=== PATIENT | male | born 1970 | race Caucasian/White ===

== ENCOUNTER 2024-06-30 00:19 | Inpatient (IN) | payer BC, SELFPAY ==
--- NOTE | 2024-06-29 23:22 | HPS.HSE ---
Family Physician
-
Family Physician: N/A.
Chief Complaint
-
Chest pain.
History of Present Illness
54 y/o male tobacco user without significant documented past medical history presented to with chest pain that began around 8 PM. The patient was washing dishes when he developed substernal chest pain. He initially thought this was indigestion.
He became weak and diaphoretic. After his symptoms did not antony, he called EMS. EKG demonstrated inferior STEMI. Pre-hospital STEMI alert was called. During transport, the patient suffered VT/VF arrest. ACLS was initiated. The patient
received high quality CPR and he was defibrillated. CPR was ongoing when the patient arrived in the ER, but ROSC was achieved. Dr. Castillo was preparing to intubate and secure the airway when the patient began making purposeful movements. He
was placed on a non-rebreather and his mentation continued to improve. At the time of my interview, he is speaking coherently. His chest pain has significantly improved. EKG in ER continues to show inferior/inferolateral STEMI.
Medical History
Past Medical History
Past Medical History: Reports None
Past Surgical History: Reports None
Social History
Tobacco: Smoker
Alcohol: Occasional
Drug: None
Personal:
Living: With Family
Employment: Employed (Works at [employer])
Family History
Family History: CAD (CAD in his father, unclear if premature.)
Allergies / Home Medications
Allergies reflects when Allergies were last updated in [facility] [facility].
Home Medications with original date entered in [facility] [facility] [facility]
Allergy/Medication List:
Home Medications:
No home medications.
Allergies:
NKDA.
Review of Systems
-
History Source: Patient
Constitutional: Reports No Symptoms
EENT: Reports No Symptoms
Respiratory: Reports Trouble Breathing
Cardiac: Reports Chest Pain and Diaphoresis
Abdomen/GI: Reports Nausea
: Reports No Symptoms
Musculoskeletal: Reports No Symptoms
Neurological: Reports No Symptoms
Physical Exam
Physical Exam
General: Well Developed, Well Nourished and Conversant
HEENT: NormoCephalic, Anicteric, Moist mucous membranes, Atraumatic, PERRLA, No Ptosis, Nose Appears Normal and Ears Appear Normal
Respiratory: Clear and Non Labored Respirations
Cardiac: S1/S2 and Regular Rhythm
Breast: Deferred by me
GI: Soft, Non Tender, Non Distended and Normal Bowel Sounds
Rectal: Deferred by Provider
Genito-urinary: Deferred by me
Musculoskeletal: No Clubbing, No Cyanosis and No Edema
Skin: Warm and Dry
Neuro: AO x 3 and Nonfocal/grossly intact
Hematologic/Lymphatic: No Lymphadenopathy
Psych: Calm and Intact Judgment/Insight
Data Reviewed
-
Medical Tests (Nuc Med, Echo, EKG etc): Image Personally Visualized and interpreted, Report Reviewed by me, Discussed with Physician, Discussed with Patient and Discussed with Family
Impression/Plan
-
Impression/Plan: 54 y/o male tobacco user presenting with STEMI complicated by VT/VF arrest.
#STEMI
-Acute, life threatening diagnosis.
-Heparin/aspirin/ticagrelor administered.
-Plan for emergent cardiac catheterization/ad hoc PCI.
-Consent signed and on the chart.
-Further instructions to follow.
[2024-06-29 23:42] VITALS: BP 131/93; BMI 32.7
[2024-06-29 23:56] LABS: ACT-LR - POC 237 Seconds (116-155)
[2024-06-30] VITALS (20 sets, daily range): BP systolic 86–132; BP diastolic 50–79; BMI 32.0
[2024-06-30 00:14] LABS: % Basophils 0.3 % (0-2); % Eosinophils 0.4 % (0-6); % Immature Granulocytes 0.5 % (0-0.5); % Monocytes 5.8 % (1.7-9.3); Absolute Eosinophils 0.1 10^3/uL (0-0.7); Absolute Immature Granulocytes 0.1 10^3/uL (0-0.05); Absolute Lymphocytes 1.5 10^3/uL (1.2-3.4); Absolute Monocytes 0.7 10^3/uL (0.1-0.6); Absolute Neutrophils 9.3 10^3/uL (1.4-6.5); Hemoglobin 12.9 g/dL (13.0-18.0); Mean Corp Hgb Conc. 33.1 g/dL (33.0-37.0); Mean Corpuscular Hgb 29.4 pg (27.0-31.0); Mean Corpuscular Volume 88.8 fL (80.0-94.0); Mean Platelet Volume 10.5 fL (7.4-10.4); Nucleated Red Blood Cells % 0 % (-); Platelet Count 249 10^3/uL (130-400); Red Blood Cell Count 4.39 10^6/uL (4.70-6.10); White Blood Cell Count 11.7 10^3/uL (4.8-10.8)
[2024-06-30 00:14] LABS: ACT-LR - POC 287 Seconds (116-155)
--- NOTE | 2024-06-30 00:22 | ITS.CL.ANGIO ---
Staffing Recruiter - Angioplasty
Angioplasty
Procedure Report:
CARDIAC CATHETERIZATION REPORT
Date of Procedure: 06/29/2024 into 06/30/2024
Referring: Carmita Faith D.O.
INDICATION: ST elevation myocardial infarction, VT/VF arrest.
PROCEDURE:
1. Left heart catheterization
2. Coronary angiography.
3. Successful aspiration thrombectomy of the right coronary artery.
4. Successful PCI of the proximal and mid right coronary artery.
A total of 38 minutes of procedural/moderate sedation was utilized. An independent director global medical affairs was present to assist with and help manage the patient's level of consciousness and physiologic status.
ACCESS:
1. 6 Thai right radial artery using a modified Seldinger technique.
CATHETERS:
1. 5 Thai JR4.
2. 5 Thai JL 3.5.
3. 6 Thai JR4 guiding catheter.
HEMODYNAMIC DATA
Weight (kg): 109.4
AO (s/d/x, mmHg): 118/83/100
LV (s/x mmHg): 118/18
LEFT VENTRICULOGRAPHY: Not performed.
CORONARY ANGIOGRAPHY
Dominance: Right.
Left Main: Cavernous, trifurcating vessel. There is no significant coronary artery disease.
LAD: Large size vessel giving rise to several small diagonals before wrapping around the apex. There is no coronary artery disease.
Ramus: Medium size vessel supplying the majority of the anterolateral wall. There is no coronary artery disease.
Circumflex: Large size, nondominant vessel giving rise to 1 significant obtuse marginal that supplies the inferolateral wall. There is a 50-60% lesion in the proximal circumflex, immediately proximal to the origin of the marginal.
RCA: Large size, dominant vessel. There is a 70% lesion in the proximal vessel. The mid vessel is acutely occluded with a large thrombus burden.
INTERVENTION(S)
1. Successful aspiration thrombectomy of the right coronary artery, restoring MELVIN-3 flow.
2. Successful PCI of the proximal and mid RCA lesions (overlapping Xience Skypoint 3.5 x 38 and 3.5 x 18 RAJI, postdilated with a 4.0 NC balloon throughout) with reduction in stenosis to 0%, maintaining MELVIN-3 flow.
Narrative:
The decision was made to proceed with percutaneous coronary intervention. The diagnostic catheter was removed over a wire and a 6Fr JR4 guiding catheter was advanced to the aortic root and seated in the right coronary artery. Additional heparin was
given and a Power Turn Flex wire was advanced into the distal RCA.
The decision was made to perform aspiration thrombectomy. An NIC catheter was prepped and flushed on the back table then connected to a syringe which was pulled to negative. The catheter was advanced into the right coronary artery. The stopcock
was opened to the vacuum syringe and the catheter was passed through the thrombotic segment. The catheter was withdrawn from the guiding catheter, maintaining negative pressure. The contents were emptied into the filter basket. Angiography showed
jain of MELVIN-3 flow throughout the entire vessel with a hazy, culprit mid RCA lesion. The filter basket revealed a significant amount of aspirated thrombus.
The hazy, thrombotic, mid RCA lesion was predilated with a 2.0 x 12 semi-compliant balloon to 12 zak. The 70% proximal RCA lesion was also predilated to 12 zak. The semi-compliant balloon was removed and a Xience Skypoint 3.5 x 38 drug-eluting
stent was advanced into the mid RCA. The stent was deployed at 12 atmospheres. The stent balloon was removed. A second, 3.5 x 18 drug-eluting stent was advanced. Meticulous care was taken while positioning the stent, ensuring that the distal
margin of this second stent overlapped with the proximal margin of the first stent and that the proximal margin of this stent covered the entire diseased segment of the proximal RCA. We were satisfied with the position, the stent was deployed to 12
zak. The stent balloon was withdrawn. A 4.0 x 20 noncompliant balloon was advanced into the stents and the entire stent length was postdilated to 14 atmospheres. Angiography was performed in orthogonal views, confirming good stent expansion and an
excellent angiographic result. The coronary wire was withdrawn and the guide was disengaged from the artery. The catheter was removed over a standard J-wire.
Closure Device: Vascular band.
Radiation (mGy): 534.24
DAP (cm2.Gy): 30.8068
Fluoroscopy time (minutes): 7.3
CONCLUSIONS
1. Right dominant circulation with a 50 to 60% proximal circumflex lesion, a 70% lesion in the proximal RCA followed by an acute occlusion of the mid RCA status post successful aspiration thrombectomy with jain of MELVIN-3 flow followed by
successful PCI of the mid RCA and proximal RCA lesions (overlapping Xience Skypoint 3.5 x 38 and 3.5 x 18 RAJI, postdilated with a 4.0 NC balloon throughout) with reduction in stenosis to 0%.
2. Mildly elevated filling pressures (LVEDP = 18 mmHg at 109.4 kg).
RECOMMENDATIONS:
1. Expectant management after cardiac catheterization via right radial approach.
2. Limited weight bearing on the right for one week.
3. Dual antiplatelet therapy with aspirin and ticagrelor for at least 12 months, followed by aspirin indefinitely.
4. Continue eptifibatide for 18 hours.
5. Aggressive secondary prevention with high-dose, high potency statin. Start rosuvastatin 20 mg daily. Goal LDL <55.
6. Guideline directed medical therapy as hemodynamics will tolerate.
7. Echocardiogram ordered and pending.
8. Trend troponin to peak.
9. Referral to cardiac rehab.
Copy to: To Mari D.O.
To Mari, DO, FACC, FACP
[2024-06-30 00:24] LABS: ALT (SGPT) 26 U/L (0-50); AST (SGOT) 32 U/L (17-59); Albumin 4.1 g/dl (3.5-5.0); Alkaline Phosphatase 82 U/L (38-126); Blood Urea Nitrogen 14 mg/dl (9-20); Calcium 8.7 mg/dl (8.4-10.2); Carbon Dioxide 22 mmol/L (22-30); Chloride 101 mmol/L (98-107); Estimated Creatinine Clearance > 125 ml/min; Glucose 233 mg/dl (70-99); HDL Cholesterol 40 mg/dl; LDL Cholesterol, Calculated 151 mg/dl; Potassium 3.4 mmol/L (3.5-5.1); Sodium 134 mmol/L (135-145); Total Bilirubin 0.4 mg/dl (0.2-1.3); Total Cholesterol 207 mg/dl (50-199); Total Protein 6.7 g/dl (6.3-8.2); Triglyceride 84 mg/dl (10-149); Very Low Density Lipoprotein 16 mg/dl (0-30); eGFR > 60.00
[2024-06-30 00:37] LABS: Troponin I 0.127 ng/ml
--- NOTE | 2024-06-30 01:12 | PTCARENOTE ---
pt received from custodial laborer, pt AOx3, tele reading NSR. No pain at this time. EKG post cath completed. Integrillin gtt running at 17mL/hr and to be run for 18hrs. air to be removed from TR band starting at 2:30am. POC discussed with patient. pt and
family verbalizes understanding. call fonseca within reach. continuing to monitor at this time.
--- NOTE | 2024-06-30 01:44 | ED.GENMED ---
History of Present Illness
General
Chief Complaint: Cardiac Symptoms
Source: patient and ambulance crew
Exam Limitations: clinical condition and altered mental status
Time Seen by Provider: 06/29/24 23:00
Nursing documentation reviewed up to this point in time: agreed with
History of Present Illness
History of Present Illness:
This is a 54-year-old gentleman who has reported no significant past medical history but admittedly has been to a doctor in at least the past 5 years. Takes no medicines on a daily basis.
Tongerard has been complaining of chest pain radiating to his arms with bilateral arm numbness. called 911 and upon EMS arrival prehospital EKG shows ST segment elevation inferiorly with reciprocal depression high lateral consistent with STEMI,
acute inferior wall VT.
Prehospital STEMI alert initiated.
Patient was given 325 mg chewable aspirin en route to the hospital.
EMS reviewed port that just prior to arrival to the ED patient rhythm changed to V. tach without a pulse and patient became unresponsive. They had difficulty with IV access/no IV access prehospital.
[id number] and CPR initiated promptly and he was given 1 shock, initially without change in rhythm but upon arrival to the ED, patient noted to have some spontaneous movement, spontaneous respirations and found to have thready but palpable
carotid pulse.
medical typist shows sinus rhythm with frequent PVCs and few short runs of V. tach.
Patient's sensorium promptly improved, he is now awake, answering simple questions appropriately. Initially quite jon with peripheral cyanosis. Nonrebreather mask initiated with marked improvement in overall coloring and sensorium.
Cardiac rhythm has improved to normal sinus rhythm with palpable peripheral pulses.
Patient continues with substernal chest pain but markedly improved.
He takes no medicines on a daily basis and denies allergies.
No prior history of CAD
Past History
Past History
ED Past Medical History: Other (Cardiomegaly. emphysema); Negative HTN, Hypercholesterolemia or NIDDM
ED Past Surgical History: None
Social History
Tobacco: Smoker
Alcohol: Former
Personal:
Living: with family
Employment: Not employed
Family History
Family History: Unable to obtain
Phy Exam
Physical Exam
Physical Exam:
GENERAL: 54-year-old obese gentleman appears older than stated age, initially obtunded, CPR progress but shortly after arrival patient's sensorium has improved, palpable pulses detected and he is now able to answer yes/no questions appropriately,
follow simple commands.
EYE: pupils equal and reactive. anicteric
NECK: Supple, nontender, no meningismus, no significant adenopathy.
ENT: oral mucosa is moist. No rhinorrhea.
CARDIAC: Initially irregularly irregular at a rate of 60-80, no murmur.
LUNGS: Poor inspiratory effort initially, has improved to normal respirations. Lungs are clear to auscultation.
ABDOMEN: Rotund, soft, nondistended, without focal tenderness
NEUROLOGICAL: Initially obtunded, sensorium has improved shortly after arrival, is now awake, alert, oriented x 3. No focal neuro deficits.
SKIN: Initially cool, markedly ashen with peripheral mottling and cyanosis. Cyanosis and mottling promptly resolved with restorationist of normal respirations and initiation of 100% oxygen via nonrebreather mask.
MUSCULOSKELETAL: No C/C/E. peripheral pulses are full and equal b/l. No palpable tenderness.
PSYCH: Normal and appropriate interaction.
Course
Orders/Labs/Results
Orders:
Orders
06/29/24 23:03
Amiodarone [Cordarone] 300 mg .ROUTE .STK-MED ONE
06/29/24 23:05
Electrocardiogram (*1) Urgent
Reason for Study: Chest Pain
EKG- Treatment ONCE
06/29/24 23:08
Ticagrelor [Brilinta] 90 mg .ROUTE .STK-MED ONE
06/29/24 23:09
Nitroglycerin 100 mg/250 ml [Nitroglycerin Premix] 100 mg in 250 ml .ROUTE .STK-MED
06/30/24 00:01
Cardiovascular Evaluation Urgent
Complete Blood Count/With Diff Urgent
Comprehensive Metabolic Panel Urgent
Troponin I Urgent
06/30/24 00:19
Admit Patient As Directed
Co-Sign Provider:
Level of Care: Inpatient admission
Assign to:: IVU
Physician / Group: Kamaljit/MIKE
Diagnosis: STEMI, VT/VF arrest.
Patient Condition: Fair
Reason for Hospitalization: STEMI, VT/VF arrest.
Expected length of stay greater than two midnights?: Yes
ELOS- Estimated Length of Stay in days: 3
I certify the patient meets the requirements for IP care: Yes
Reason for Overnight Stay: Standard of Care
Electrocardiogram (*1) Urgent
Reason for Study: Other
Other Reason for Exam: s/p intervention
Code Status As Directed
Resuscitation Status: Full Code
CARDIAC REHAB CONSULT Routine
Co-Sign Provider:
Type of Cardiac Rehab Referral: Outpatient
Diagnosis: STEMI
Date of Diagnosis/Surgery: 06/29/2024
Referring Provider: To Mari
Acetaminophen [Tylenol] 650 mg PO Q4HPRN PRN
Fentanyl Citrate/Pf [Sublimaze] 25 mcg IV [id number] PRN
Midazolam HCl [Versed] 1 mg IV Q5MPRN PRN
Morphine Sulfate 2 mg IV Q1HPRN PRN
Nitroglycerin Sublingual [Nitrostat (Sublingual)] 0.4 mg SL [id number] PRN
Oxycodone/Acetaminophen [Percocet 5/325] 1 tablet PO Q4HPRN PRN
Activity As Directed
Activity Level: Out of Bed- Chair
Comment: bed/chair rest for 2 hours then out of bed ad chastity
Investment Specialist Procedure As Directed
Cardiac Cath Procedure: percutaneous coronary intervention
Intake/ Output As Directed
Frequency: Per unit guidelines
Notify MD As Directed
Notify physician if: immediately for chest pain or bleeding from access site(s)
Radial Artery Hemostasis Method As Directed
Instructions:: 3 mL out at 2 hour posts placement of band
3 mL out at 2 1/2 hours post placement of band
3 mL out at 3 hours post placement of band
Off at 3 1/2 hours post placement of band
If any oozing or hemotoma occurs:: re-inflate band and call provider
Site Checks As Directed
Check access site for bleeding/hematoma: Yes
Comment: on arrival, Q15min x4, Q30min x2, Q1 hr x2, Q2 hr x2, Q4 hr or per
protocol
Vascular Checks As Directed
Location: distal to access site - pulse check
Frequency: Other
Comment: on arrival, Q15min x4, Q30min x2, Q1 hr x2, Q2 hr x2, Q4 hr or per protocol
Venous Foot Pumps As Directed
Location: Bilateral feet
Vital Signs As Directed
Frequency: Other
Additional Instructions:: on arrival, Q15min x4, Q30min x2, Q1 hr x2, Q2 hr x2, then Q4 hr or per unit
protocol
PRN Pain Medication Management As Directed
May give lesser potent ordered pain med per pt: Yes
preference::
Protocol:: Medication orders for pain may be administered in a
manner that supports deferring to patient preference
when the pt is:
- Requesting an ordered lesser potent pain medication.
Least to most potent pain medications are defined
as: acetaminophen < NSAID < tramadol < opioids
(morphine, oxycodone, hydromorphone).
- Requesting a lesser dose of the same medication IF
ORDERED.
- Requesting a less intrusive route of administration
if both routes are prescribed by the provider (PO <
IV).
DX Deep Vein Thrombosis Video Routine
06/30/24 00:30
0.9% Sodium Chloride 1000 ml [Nss] 1,000 ml IV PER PROTOCOL
Infusion rate in mL/kg/hr:: 1.5
Infusion rate in mL/hr:: 164
Duration of infusion (hours):: 5
EPTIFIBATIDE 75 mg/100 mL [Integrilin] 75,000 mcg in 100 ml IV ORDERED RATE
06/30/24 00:54
Case Management Consult ONCE
Case Management Consult: Advanced Directive
06/30/24 01:00
Flush (0.9% Sodium Chloride) [Flush (Nss)] See Dose Instructions IV PER PROTOCOL
06/30/24 04:50
Basic Metabolic Panel IN AM
Complete Blood Count/No Diff IN AM
Glycohemoglobin (HgbA1c) Routine
Troponin I Q6H
06/30/24 06:00
Echo 2D MMode Color/Doppler IN AM
Reason for Study: STEMI, VT/VF arrest.
Electrocardiogram (*1) IN AM
Reason for Study: Other
Other Reason for Exam: s/p intervention
Cholesterol Lowering
At Your Request: Full Participation
Does patient need a safe tray?: No
Cholesterol Lowering: Sodium, 2 Gram
06/30/24 08:00
Aspirin Chewable [Low Strength Aspirin] 81 mg PO DAILY
Ticagrelor [Brilinta] 90 mg PO BID
06/30/24 12:30
Troponin I Q6H
06/30/24 18:00
Enoxaparin Sodium [Lovenox] 40 mg SC QPM
Rosuvastatin Calcium [Crestor] 20 mg PO QPM
06/30/24 18:30
Troponin I Q6H
07/01/24 00:30
Troponin I Q6H
07/01/24 06:00
Basic Metabolic Panel IN AM
07/02/24 06:00
Basic Metabolic Panel IN AM
Abnormal Lab Results
06/29/24 06/30/24 06/30/24
23:50 00:01 00:08
WBC 11.7 H 10^3/uL
(4.8-10.8)
RBC 4.39 L 10^6/uL
(4.70-6.10)
Hgb 12.9 L g/dL
(13.0-18.0)
Hct
MPV 10.5 H fL
(7.4-10.4)
Abs Immat Gran (auto) 0.1 H 10^3/uL
(0-0.05)
Absolute Neuts (auto) 9.3 H 10^3/uL
(1.4-6.5)
Absolute Monos (auto) 0.7 H 10^3/uL
(0.1-0.6)
Neutrophils % 80.0 H %
(42.2-75.2)
Lymphocytes % 13.0 L %
(20.5-51.1)
Sodium 134 L mmol/L
(135-145)
Potassium 3.4 L mmol/L
(3.5-5.1)
Creatinine
Glucose 233 H mg/dl
(70-99)
Troponin I 0.127 H* ng/ml
Total Cholesterol 207 H mg/dl
(50-199)
POC ACT Low Range 237 H Seconds 287 H Seconds
(116-155) (116-155)
06/30/24
04:50
WBC 12.5 H 10^3/uL
(4.8-10.8)
RBC 4.27 L 10^6/uL
(4.70-6.10)
Hgb 12.6 L g/dL
(13.0-18.0)
Hct 37.6 L %
(39.0-52.0)
MPV
Abs Immat Gran (auto)
Absolute Neuts (auto)
Absolute Monos (auto)
Neutrophils %
Lymphocytes %
Sodium 133 L mmol/L
(135-145)
Potassium
Creatinine 0.6 L mg/dL
(0.7-1.3)
Glucose 102 H mg/dl
(70-99)
Troponin I 37.300 H* D ng/ml
Total Cholesterol
POC ACT Low Range
06/30/24 04:50
06/30/24 04:50
Vital Signs
Initial and Last Documented VS:
Initial Vital Signs
Pulse Resp BP Pulse Ox
77 20 131/93 92
06/29/24 23:42 06/29/24 23:42 06/29/24 23:42 06/29/24 23:42
Last Documented Vital Signs
Temp Pulse Resp BP Pulse Ox
97.8 F 77 16 115/77 95
06/30/24 03:05 06/30/24 03:05 06/30/24 03:05 06/30/24 03:05 06/30/24 03:05
MDM/Problems Addressed
Differential Diagnosis Includes:
Acute STEMI, prehospital STEMI alert notified.
Brief episode of V. tach requiring CPR, 1 shock with ROSC
Initial obtundation has resolved with restorationist of cardiac rhythm and spontaneous respirations.
Initial plan was for oral intubation but sensorium and respiratory status as well as cardiovascular status has markedly improved since arrival to the ED.
Patient was given 324 mg chewable aspirin prehospital.
Will give Brilinta 180 mg orally to chew.
Heparin 5000 units IV
And due to V. tach arrest will give amiodarone 150 mg IV bolus.
Patient noted to be moderately hypertensive and does continue with some chest pain.
If time allows we will plan for IV nitroglycerin drip.
Awaiting Investment Specialist and tool room attendant.
MDM/Problems Addressed:
Acute inferior wall VT/STEMI
V. tach arrest with ROSC
*Pulse Oximetry
Patient hypoxic: no
*EKG
Interpreted by ED Provider?: Yes
Interpretation: abnormal
Rate: normal
Rhythm: sinus
[place]: normal axis
Interval: first degree heart block (Borderline first-degree heart block)
QRS Pattern: normal QRS
Ischemia: ST elevation (ST segment elevation inferiorly with reciprocal depression high laterally consistent with STEMI)
*Glaze Wiper Interpretation
Rate: normal
Interpretation: abnormal
Rhythm: sinus and PVC's (Few short runs of V. tach initially have resolved to normal sinus rhythm)
*Critical Care Note
Total Time (30-74mins, 75-104mins- exclusive of procedures): 30
comment:
Critical care statement: A total of 30 minutes of critical care time was provided for this patient. This includes management of unstable vital signs, evaluation of the patient at bedside, reviewing the patient's pertinent medical records, discussion
with consultants, review of old EKGs and review of pertinent medical records. This time with separate from time utilized to perform the aforementioned documented procedures
ED Attending Note
-
Portions of this chart may have been created with voice recognition software.� Occasional wrong word or��sound alike� substitutions may have occurred due to the inherent limitations of voice recognition software.
Discharge Plan
Departure
Patient Disposition: Admit
Date of Disposition: 06/29/24
Time of Disposition: 23:30
Admit to: research laboratory technician
Admit to doctor: Kamaljit
Presentation/result/management discussed w/ accepting MD/DO: Cardiology-interventional
Condition: Critical
Discharge Problem:
ST elevation (STEMI) myocardial infarction, ventricular tachycardia cardiac arrest
Interventions
Interventions:
*Nursing Disposition Last Done: 06/29/24 23:51
ED- Pulmonary Assessment Last Done: 06/29/24 23:48
ED- Cardiac Assessment Last Done: 06/29/24 23:48
Discharge Date and Time
Discharge Date/Time: 06/29/24 23:52
[2024-06-30] MEDS: INTEGRILIN 100 IV ×3 (03:46→16:42)
[2024-06-30 05:26] LABS: Hematocrit 37.6 % (39.0-52.0); Hemoglobin 12.6 g/dL (13.0-18.0); Mean Corp Hgb Conc. 33.5 g/dL (33.0-37.0); Mean Corpuscular Hgb 29.5 pg (27.0-31.0); Mean Corpuscular Volume 88.1 fL (80.0-94.0); Mean Platelet Volume 10.4 fL (7.4-10.4); Platelet Count 231 10^3/uL (130-400); Red Blood Cell Count 4.27 10^6/uL (4.70-6.10); Red Cell Dist. Width 13.1 % (11.5-14.5); White Blood Cell Count 12.5 10^3/uL (4.8-10.8)
[2024-06-30 05:39] LABS: Blood Urea Nitrogen 15 mg/dl (9-20); Calcium 9.1 mg/dl (8.4-10.2); Carbon Dioxide 24 mmol/L (22-30); Chloride 103 mmol/L (98-107); Estimated Creatinine Clearance > 125 ml/min; Glucose 102 mg/dl (70-99); Potassium 4.3 mmol/L (3.5-5.1); Sodium 133 mmol/L (135-145); eGFR > 60.00
--- NOTE | 2024-06-30 08:06 | W.PN.CD ---
Today's Communication / Plan
-
DAPT.
Metoprolol 12.5 mg daily.
Statin.
Echo.
Tentative plan for recath/iFR of pLCx tomorrow.
Impression / Plan
-
Impression/Plan: 54 y/o male tobacco user admitted with STEMI complicated by VT/VF arrest.
#STEMI
-Acute, life threatening diagnosis.
-S/P cardiac catheterization, followed by aspiration thrombectomy/PCI of the mid and proximal RCA ( ), 06/29-.
-Troponin up to 37, not yet peaked.
-DAPT with aspirin/ticagrelor for 12 months, followed by aspirin indefinitely.
-Echocardiogram pending.
-Start metoprolol 12.5 mg daily.
-Aggressive secondary prevention with high dose, high potency statin.
#Residual CAD
-New diagnosis.
-Residual 50-60% pLCx lesion seen on cath/PCI for STEMI.
-Statin as above.
-Tentative plan for re-cath/iFR of the pLCx lesion tomorrow.
#HLD
-New diagnosis.
-Total cholesterol = 207, LDL = 151, HDL = 40, Triglycerides = 84.
-Rosuvastatin 20 mg daily.
-Goal LDL < 55.
#Tobacco abuse
-Chronic.
-I congratulated him on quitting as of this hospitalization.
Subjective/Interval History:
Patient presented with inferior STEMI complicated by VT/VF arrest.
ROSC achieved with ACLS/defibrillation.
Normal mentation.
Cardiac cath showed proximal/mid RCA occlusion and residual LCx disease (50-60%).
S/P PCI to proximal/mid RCA.
DATA:
Cardiac Catheterization/PCI, 06/29/2024:
CONCLUSIONS
1. Right dominant circulation with a 50 to 60% proximal circumflex lesion, a 70% lesion in the proximal RCA followed by an acute occlusion of the mid RCA status post successful aspiration thrombectomy with christian of MELVIN-3 flow followed by
successful PCI of the mid RCA and proximal RCA lesions (overlapping Xience Skypoint 3.5 x 38 and 3.5 x 18 RAJI, postdilated with a 4.0 NC balloon throughout) with reduction in stenosis to 0%.
2. Mildly elevated filling pressures (LVEDP = 18 mmHg at 109.4 kg).
Physical Exam
Vital Signs/Labs
Vital Signs
Temp Pulse Resp BP Pulse Ox
36.6 C 77 16 115/77 95
06/30/24 03:05 06/30/24 03:05 06/30/24 03:05 06/30/24 03:05 06/30/24 03:05
06/28/24 06/29/24 06/30/24
11:59 11:59 11:59
Actual Weight 109.9 kg
06/30/24 04:50
06/30/24 04:50
Triglycerides 84 mg/dl (10-149) 06/30/24 00:01
LDL Cholesterol, Calc 151 mg/dl 06/30/24 00:01
VLDL Cholesterol, Calc 16 mg/dl (0-30) 06/30/24 00:01
HDL Cholesterol 40 mg/dl 06/30/24 00:01
LAB Results
06/30/24 06/30/24 06/30/24
00:01 00:30 04:50
Troponin I 0.127 H* Cancelled 37.300 H* D
Physical Exam
Constitutional: No acute distress and Comfortable
EENT: Anicteric and Moist mucous membranes
Cardiovascular: Rhythm & rate is regular, Pedal edema is absent, JVD pressure is normal, S1S2 is normal and Murmur/rub/gallop absent
Respiratory: Respiratory effort normal, Lungs clear to auscul., Wheeze Absent, Crackles Absent and Rhonchi Absent
GI: Soft, Distention absent, Flat, Non tender and Normal bowel sounds
Neuro/Psych: AO x 3
Other: Cath Site (Right radial access site is C/D/I.)
Data Reviewed
-
Date of Service: June 30, 2024
Medical Decision Making: Reviewed Test Results, Independent Historian Assessment and Test Interpretation
EKG: Tracing Personally Visualized and interpreted and Report Reviewed by me
Echo: Ordered by me
Medical Tests (PFT, Pathology etc): Image Personally Visualized and interpreted, Report Reviewed by me, Discussed with Nurse, Discussed with Patient and Discussed with Family
Labs: Labs Reviewed by me
Old Records: Reviewed
[2024-06-30] MEDS: BRILINTA 90 MG PO (08:52)
[2024-06-30] MEDS: LOW STRENGTH ASPIRIN 81 MG PO (08:52)
[2024-06-30] MEDS: TOPROL XL 12.5 MG PO ×2 (10:14→16:37)
[2024-06-30] MEDS: NICODERM TRANSDERMAL 21 MG TRANSDERM (10:14)
--- NOTE | 2024-06-30 11:11 | PTCARENOTE ---
Received pt at handoff. Pt is AOX3 and pleasant. Tele- SR. R radial is c/d/i. No hematoma/bleeding noted. Integrillin gtt infusing at 17ml/hr per order. Pt has no complaints at this time. Nicotine patch applied to R upper arm. Plan of care discussed
w/ pt. Verbalizes understanding. Call marian w/in reach.
--- NOTE | 2024-06-30 12:55 | CM ---
CM following for DC planning needs.
Met w/ patient and additional family members at bedside.
Pt. resides w/ family in a private, mobile home w/ 4 SHARIF. Functionally, patient is indep. at baseline w/ ADLs, mobility without the use of any assisted device.
Pt. has RX plan and uses [facility] on [address] for RX needs.
Anticipate DC to home without needs.
Will follow for any needs that may arise.
--- NOTE | 2024-06-30 13:32 | CM ---
Priced Brilinta thru patient's pharm plan, [facility]- [phone].
Brilinta is non-formulary.
Effient or Plavix would be covered and estimated to be $10/mo.
TT to JOSE L to update.
--- NOTE | 2024-06-30 16:09 | PTCARENOTE ---
Pt w/ 10 beat run Vtach. BP 132/78. Pt reports a 'fluttery feeling' in chest. Kamaljit REDDY made aware.
--- NOTE | 2024-06-30 16:35 | PTCARENOTE ---
Pt w/ 10 beat run Vtach. BP 132/78. Pt reports a 'fluttery feeling' in chest. Megan REDDY made aware and orders placed for stat PO 12.5mg metoprolol.
[2024-06-30] MEDS: CRESTOR 20 MG PO (18:19)
--- NOTE | 2024-06-30 18:29 | PTCARENOTE ---
Integrillin gtt discontinued per order.
--- NOTE | 2024-06-30 20:41 | PTCARENOTE ---
assumed care at change of shift. pt seen and assessed in room, pt family in room as well. pt OOB to chair, sitting comfortably in chair. no complaints of pain at this time. R radial site c/d/i with gauze and tegaderm. This RN discussed POC to pt,
including NPO past midnight for planned cath 07/01. Pt. verbalizes understanding. Call fonseca within reach. Continuing to monitor at this time.
[2024-07-01 04:31] VITALS: BP 126/75
[2024-07-01 05:14] VITALS: BMI 31.9
[2024-07-01 05:43] LABS: Blood Urea Nitrogen 14 mg/dl (9-20); Calcium 8.8 mg/dl (8.4-10.2); Carbon Dioxide 27 mmol/L (22-30); Chloride 103 mmol/L (98-107); Estimated Creatinine Clearance > 125 ml/min; Glucose 120 mg/dl (70-99); Potassium 4.2 mmol/L (3.5-5.1); Sodium 137 mmol/L (135-145); eGFR > 60.00
--- NOTE | 2024-07-01 07:23 | W.PN.CD ---
Today's Communication / Plan
-
Prasugrel load.
Continue GDMT/OMT.
Deferred iFR of LCx as an outpatient.
Discharge planning.
Impression / Plan
-
Impression/Plan: 54 y/o male tobacco user admitted with STEMI complicated by VT/VF arrest.
#STEMI
-Acute, life threatening diagnosis.
-S/P cardiac catheterization, followed by aspiration thrombectomy/PCI of the mid and proximal RCA ( ), 06/29-.
-Troponin peaked at 37.
-Ticagrelor is cost prohibitive. DAPT with aspirin/prasugrel for 12 months, followed by aspirin indefinitely. Load with prasugrel 60 mg this morning.
-Echocardiogram shows RCA territory hypokinesis with preserved systolic function, LVEF 50-55%.
-Continue metoprolol, rosuvastatin.
#Residual CAD
-New diagnosis.
-Residual 50-60% pLCx lesion seen on cath/PCI for STEMI.
-Statin as above.
-Due to Lab 1 equipment failure, we will defer the iFR of the LCx to an outpatient cath sometime in the near future.
#HLD
-New diagnosis.
-Total cholesterol = 207, LDL = 151, HDL = 40, Triglycerides = 84.
-Rosuvastatin 20 mg daily.
-Goal LDL < 55.
#Tobacco abuse
-Chronic.
-Nicotine patch ordered.
-I congratulated him on quitting as of this hospitalization.
#Dispo
-IVU status.
-Full code.
-Discharge planning (tomorrow morning).
Subjective/Interval History:
Some ventricular ectopy yesterday.
Metoprolol started.
Nicotine patch ordered.
HbA1c = 6.0%.
DATA:
Cardiac Catheterization/PCI, 06/29/2024:
CONCLUSIONS
1. Right dominant circulation with a 50 to 60% proximal circumflex lesion, a 70% lesion in the proximal RCA followed by an acute occlusion of the mid RCA status post successful aspiration thrombectomy with pentecostalism of MELVIN-3 flow followed by
successful PCI of the mid RCA and proximal RCA lesions (overlapping Xience Skypoint 3.5 x 38 and 3.5 x 18 RAJI, postdilated with a 4.0 NC balloon throughout) with reduction in stenosis to 0%.
2. Mildly elevated filling pressures (LVEDP = 18 mmHg at 109.4 kg).
Transthoracic Echocardiogram, 06/30/2024:
CONCLUSIONS
LV ejection fraction is 50-55%. Mild to moderate basal to mid inferior and
inferoseptal hypokinesis.
Normal right ventricular size and function.
No significant valvular disease.
Minimally dilated aortic root (Sinus of Valsalva measures 3.9 cm).
No prior study available for comparison.
Physical Exam
Vital Signs/Labs
Vital Signs
Temp Pulse Resp BP Pulse Ox
36.6 C 73 16 126/75 97
07/01/24 04:31 07/01/24 06:30 07/01/24 04:31 07/01/24 04:31 07/01/24 04:31
06/29/24 06/30/24 07/01/24
11:59 11:59 11:59
Actual Weight 109.9 kg 109.8 kg
06/30/24 04:50
07/01/24 04:36
Triglycerides 84 mg/dl (10-149) 06/30/24 00:01
LDL Cholesterol, Calc 151 mg/dl 06/30/24 00:01
VLDL Cholesterol, Calc 16 mg/dl (0-30) 06/30/24 00:01
HDL Cholesterol 40 mg/dl 06/30/24 00:01
LAB Results
06/30/24 06/30/24 06/30/24
00:01 00:30 04:50
Troponin I 0.127 H* Cancelled 37.300 H* D
06/30/24 06/30/24
13:13 18:30
Troponin I 37.000 H* Cancelled
Physical Exam
Constitutional: No acute distress and Comfortable
EENT: Anicteric and Moist mucous membranes
Cardiovascular: Rhythm & rate is regular, Pedal edema is absent, JVD pressure is normal, S1S2 is normal and Murmur/rub/gallop absent
Respiratory: Respiratory effort normal, Lungs clear to auscul., Wheeze Absent, Crackles Absent and Rhonchi Absent
GI: Soft, Distention absent, Flat, Non tender and Normal bowel sounds
Neuro/Psych: AO x 3
Other: Cath Site
Data Reviewed
-
Date of Service: July 01, 2024
Medical Decision Making: Reviewed Test Results, Independent Historian Assessment and Test Interpretation
EKG: Tracing Personally Visualized and interpreted and Report Reviewed by me
Echo: Tracing Personally Visualized and interpreted and Report Reviewed by me
Medical Tests (PFT, Pathology etc): Image Personally Visualized and interpreted and Report Reviewed by me
Labs: Labs Reviewed by me
Old Records: Reviewed
[2024-07-01 07:47] VITALS: BP 97/62
[2024-07-01] MEDS: NICODERM TRANSDERMAL 21 MG TRANSDERM (09:06)
[2024-07-01] MEDS: TOPROL XL 25 MG PO (09:07)
[2024-07-01] MEDS: LOW STRENGTH ASPIRIN 81 MG PO (09:07)
[2024-07-01] MEDS: EFFIENT 60 MG PO (09:29)
--- NOTE | 2024-07-01 10:14 | PTCARENOTE ---
Rec'd pt at handoff. Tele- SR. R radial site is c/d/i. Pt aware of NPO status for cath today. Pt has no complaints at this time. Call marian w/in reach.
[2024-07-01 11:11] VITALS: BP 90/59
--- NOTE | 2024-07-01 11:28 | CM ---
CM following for DC planning needs.
Pt. feels well, is anticipating a second CATH procedure today. Offers no concerns or needs.
Will cont. to follow.
Antic. home without needs once medically stable.
--- NOTE | 2024-07-01 14:08 | W.DS.TRANS ---
DC Summary - Medicaid Collection Specialist
-
Discharge Instructions:
Discharge Diagnosis/Procedures STEMI, thombectomy and angioplasty with stent x2
to Right Coronary artery
Diet Low Cholesterol
Activity No strenuous activity
Additional Activity NO strenuous activity for 1 week post discharge.
NO snow shoveling or heavy lifting >10lbs for 1
week.
Driving Restrictions No driving for 24 hours
Other Services Cardiac Rehab
Instructions:
Stand-Alone Forms: DC Instructions- Cath/EP Lab
Changes to Home Medications: Yes
Discharge Medications:
DC Medications w/original date entered in [email or web address]
albuterol sulfate 90 mcg/actuation aerosol inhaler 2 puff inhalation Q6H PRN dyspnea/wheezing 07/01/24
aspirin 81 mg chewable tablet 81 mg PO DAILY #0 tabs 07/01/24
metoprolol succinate 25 mg tablet,extended release 24 hr 25 mg PO DAILY #90 tabs 07/01/24
nicotine 21 mg/24 hr daily transdermal patch 21 mg transdermal DAILY #28 ea 07/01/24
nitroglycerin 0.4 mg sublingual tablet 0.4 mg sublingual [id number] PRN chest pain #25 tabs 07/01/24
prasugrel HCl 10 mg tablet 10 mg PO DAILY #90 tabs 07/01/24
rosuvastatin 20 mg tablet 20 mg PO QPM #90 tabs 07/01/24
Home Medication Changes
NEW: aspirin, metoprolol succinate, nicotine patch, prasugrel, rosuvastatin
Pending Results: No
[2024-07-01 15:45] VITALS: BP 117/63
[2024-07-01] MEDS: CRESTOR 20 MG PO (17:23)
[2024-07-01 20:04] VITALS: BP 111/71
[2024-07-01 22:25] VITALS: BP 102/65
[2024-07-02 02:31] VITALS: BP 121/84
[2024-07-02 03:04] LABS: Hematocrit 39.6 % (39.0-52.0); Hemoglobin 13.2 g/dL (13.0-18.0); Mean Corp Hgb Conc. 33.3 g/dL (33.0-37.0); Mean Corpuscular Hgb 29.7 pg (27.0-31.0); Mean Corpuscular Volume 89.2 fL (80.0-94.0); Mean Platelet Volume 10.4 fL (7.4-10.4); Platelet Count 211 10^3/uL (130-400); Red Blood Cell Count 4.44 10^6/uL (4.70-6.10); Red Cell Dist. Width 13.4 % (11.5-14.5); White Blood Cell Count 11.1 10^3/uL (4.8-10.8)
[2024-07-02 03:26] LABS: Blood Urea Nitrogen 15 mg/dl (9-20); Calcium 8.7 mg/dl (8.4-10.2); Carbon Dioxide 26 mmol/L (22-30); Chloride 104 mmol/L (98-107); Estimated Creatinine Clearance > 125 ml/min; Glucose 114 mg/dl (70-99); Potassium 4.2 mmol/L (3.5-5.1); Sodium 136 mmol/L (135-145); eGFR > 60.00
[2024-07-02 07:49] VITALS: BP 103/65
[2024-07-02] MEDS: LOW STRENGTH ASPIRIN 81 MG PO (08:29)
[2024-07-02] MEDS: TOPROL XL 25 MG PO (08:29)
[2024-07-02] MEDS: NICODERM TRANSDERMAL 21 MG TRANSDERM (08:29)
[2024-07-02] MEDS: EFFIENT 10 MG PO (08:29)
[2024-07-02 08:31] VITALS: BP 98/71
[2024-07-02 08:32] VITALS: BP 112/74
--- NOTE | 2024-07-02 08:42 | W.PN.CD ---
Today's Communication / Plan
-
Discharge.
Repeat cardiac catheterization/iFR of LCx within the next 14 days.
Impression / Plan
-
Impression/Plan: 54 y/o male tobacco user admitted with STEMI complicated by VT/VF arrest.
#STEMI
-Acute, life threatening diagnosis.
-S/P cardiac catheterization, followed by aspiration thrombectomy/PCI of the mid and proximal RCA ( ), 06/29-.
-Troponin peaked at 37.
-DAPT with aspirin/prasugrel for 12 months, followed by aspirin indefinitely.
-Echocardiogram shows RCA territory hypokinesis with preserved systolic function, LVEF 50-55%.
-Continue metoprolol, rosuvastatin.
#Residual CAD
-New diagnosis.
-Residual 50-60% pLCx lesion seen on cath/PCI for STEMI.
-Statin as above.
-Due to Lab 1 equipment failure, we will defer the iFR of the LCx to an outpatient cath within the next 2 weeks.
#HLD
-New diagnosis.
-Total cholesterol = 207, LDL = 151, HDL = 40, Triglycerides = 84.
-Rosuvastatin 20 mg daily.
-Goal LDL < 55.
#Tobacco abuse
-Chronic.
-Nicotine patch ordered.
-I congratulated him on quitting as of this hospitalization.
#Dispo
-IVU status.
-Full code.
-Discharge.
Subjective/Interval History:
No acute events.
No subjective complaints.
DATA:
Cardiac Catheterization/PCI, 06/29/2024:
CONCLUSIONS
1. Right dominant circulation with a 50 to 60% proximal circumflex lesion, a 70% lesion in the proximal RCA followed by an acute occlusion of the mid RCA status post successful aspiration thrombectomy with nondenominational of MELVIN-3 flow followed by
successful PCI of the mid RCA and proximal RCA lesions (overlapping Xience Skypoint 3.5 x 38 and 3.5 x 18 RAJI, postdilated with a 4.0 NC balloon throughout) with reduction in stenosis to 0%.
2. Mildly elevated filling pressures (LVEDP = 18 mmHg at 109.4 kg).
Transthoracic Echocardiogram, 06/30/2024:
CONCLUSIONS
LV ejection fraction is 50-55%. Mild to moderate basal to mid inferior and
inferoseptal hypokinesis.
Normal right ventricular size and function.
No significant valvular disease.
Minimally dilated aortic root (Sinus of Valsalva measures 3.9 cm).
No prior study available for comparison.
Physical Exam
Vital Signs/Labs
Vital Signs
Temp Pulse Resp BP Pulse Ox
36.6 C 70 18 112/74 97
07/02/24 07:52 07/02/24 08:32 07/02/24 07:52 07/02/24 08:32 07/02/24 07:52
06/30/24 07/01/24 07/02/24
11:59 11:59 11:59
Actual Weight 109.9 kg 109.8 kg
07/02/24 02:37
07/02/24 02:37
Triglycerides 84 mg/dl (10-149) 06/30/24 00:01
LDL Cholesterol, Calc 151 mg/dl 06/30/24 00:01
VLDL Cholesterol, Calc 16 mg/dl (0-30) 06/30/24 00:01
HDL Cholesterol 40 mg/dl 06/30/24 00:01
LAB Results
06/30/24 06/30/24 06/30/24
00:01 00:30 04:50
Troponin I 0.127 H* Cancelled 37.300 H* D
06/30/24 06/30/24
13:13 18:30
Troponin I 37.000 H* Cancelled
Physical Exam
Constitutional: No acute distress and Comfortable
EENT: Anicteric and Moist mucous membranes
Cardiovascular: Rhythm & rate is regular, Pedal edema is absent, JVD pressure is normal, S1S2 is normal and Murmur/rub/gallop absent
Respiratory: Respiratory effort normal, Lungs clear to auscul., Wheeze Absent, Crackles Absent and Rhonchi Absent
GI: Soft, Distention absent, Flat, Non tender and Normal bowel sounds
Neuro/Psych: AO x 3
Data Reviewed
-
Date of Service: July 02, 2024
Medical Decision Making: Reviewed Test Results, Independent Historian Assessment and Test Interpretation
EKG: Tracing Personally Visualized and interpreted and Report Reviewed by me
Echo: Tracing Personally Visualized and interpreted and Report Reviewed by me
X-Ray/CT/US/MRI/NUC/PET: Image Personally Visualized and interpreted and Report Reviewed by me
Medical Tests (PFT, Pathology etc): Image Personally Visualized and interpreted and Report Reviewed by me
Labs: Labs Reviewed by me
Old Records: Reviewed
--- NOTE | 2024-07-02 11:05 | PTCARENOTE ---
Discharge teaching. Patient verbalized understanding. IV and telemetry removed. Patient daughter will drive him home later today
--- NOTE | 2024-07-02 11:29 | PTCARENOTE ---
[facility] to home[facility] His daughter is driving him home today
== END 2024-07-02 11:30 | disposition home or self-care (01) | DRG 321 ==
LOC: IVU 00:19
PROVIDERS: Nurse Practitioner; ADMITTING PHYSICIAN Internal Medicine Cardiovascular Disease; EMERGENCY PHYSICIAN Emergency Medicine
PROC: 4A023N7 Measurement of Cardiac Sampling and Pressure, Left Heart, Percutaneous Approach (ICD-10-PCS; 2024-06-30)
PROC: 02C03ZZ Extirpation of Matter from Coronary Artery, One Artery, Percutaneous Approach (ICD-10-PCS; 2024-06-30)
PROC: 027035Z Dilation of Coronary Artery, One Artery with Two Drug-eluting Intraluminal Devices, Percutaneous Approach (ICD-10-PCS; 2024-06-30)
PROC: B2111ZZ Fluoroscopy of Multiple Coronary Arteries using Low Osmolar Contrast (ICD-10-PCS; 2024-06-30)
DX: I21.19 ST elevation (STEMI) myocardial infarction involving other coronary artery of inferior wall (principal); I46.2 Cardiac arrest due to underlying cardiac condition; I49.01 Ventricular fibrillation; I47.20 Ventricular tachycardia, unspecified; F17.200 Nicotine dependence, unspecified, uncomplicated; J43.9 Emphysema, unspecified; I25.10 Atherosclerotic heart disease of native coronary artery without angina pectoris; E78.5 Hyperlipidemia, unspecified; Z82.49 Family history of ischemic heart disease and other diseases of the circulatory system
CPT/HCPCS: 80048; 80053; 80061; 83036; 84484; 85025; 85027; 85347; 92960; 93005; 93306; 93458; 99152; 99153; 99291; C1725; C1769; C1874; C1894; C9606; J1327; Q9967

== ENCOUNTER 2024-07-13 07:48 | Day surgery (SDC) | payer BC, SELFPAY ==
[2024-07-13] VITALS (19 sets, daily range): BP systolic 93–144; BP diastolic 60–98; BMI 30.1
[2024-07-13] MEDS: EFFIENT 10 MG PO (08:29)
[2024-07-13] MEDS: LOW STRENGTH ASPIRIN 81 MG PO (08:30)
[2024-07-13] MEDS: NSS 302 ML IV (08:30)
[2024-07-13 10:45] LABS: ACT-LR - POC 314 Seconds (116-155)
[2024-07-13 11:08] LABS: ACT-LR - POC 239 Seconds (116-155)
--- NOTE | 2024-07-13 11:22 | ITS.CL.ANGIO ---
Signal Processing Engineer - Angioplasty
Angioplasty
Procedure Report:
CARDIAC CATHETERIZATION REPORT
Date of Procedure: 07/13/2024
Referring: To Mari D.O.
INDICATION: Staged IFR and ad hoc intervention after inferior STEMI.
PROCEDURE:
1. Left heart catheterization.
2. Coronary angiography.
3. Successful IFR of the circumflex.
4. Successful IVUS guided PCI of the circumflex.
A total of 44 minutes of procedural/moderate sedation was utilized. An independent medical customer service representative was present to assist with and help manage the patient's level of consciousness and physiologic status.
ACCESS:
1. 6 Tristanian right rate artery using a modified Seldinger technique.
CATHETERS:
1. 5 Tristanian JR4.
2. 6 Tristanian EBU 3.5 guiding catheter.
HEMODYNAMIC DATA
Weight (kg): 100.2
AO (s/d/x, mmHg): 124/86/24
LV (s/x mmHg): 124/20
LEFT VENTRICULOGRAPHY: Not performed.
CORONARY ANGIOGRAPHY
Dominance: Right.
Left Main: Cavernous, trifurcating vessel. There is no significant coronary artery disease.
LAD: Large vessel giving rise to several small diagonals before wrapping around the apex. There is no coronary artery disease.
Ramus: Medium size vessel supplying the majority of the anterolateral wall. There is no coronary artery disease.
Circumflex: Large size, nondominant vessel giving rise to 1 significant obtuse marginal that supplies the inferolateral wall. There is a 70% lesion in the proximal circumflex, immediately proximal to the origin of the marginal.
RCA: Normal size, dominant vessel. Patent stents are visible in the proximal and mid vessel. There is no further de zhang coronary artery disease or evidence of in-stent restenosis.
INTERVENTION(S)
1. Successful IFR of the 70% proximal circumflex lesion, demonstrating occlusive disease (IFR = 0.88).
2. Successful PCI of the 70% proximal circumflex lesion into the proximal margin of the obtuse marginal (Medtronic Boris Newton 3.0 x 18 RAJI) with reduction in stenosis to 0%, maintaining EMLVIN-3 flow.
3. Successful IVUS of the circumflex lesion and stent.
4. Successful post dilation of the stent using a 3.25 NC balloon throughout and a 3.5 x 8 NC balloon in the mid stent and proximal margin.
Narrative:
The decision was made to perform physiologic testing. The diagnostic catheter was removed over a wire and exchanged for a(n) EBU 3.5 guiding catheter. The guiding catheter was advanced into the ascending aorta and seated in the left main coronary
artery. Additional heparin was given to obtain an ACT greater than 250 seconds. An iFR wire was zeroed outside of the body, then inserted into the guiding sheath. The wire was advanced and the transducer was normalized just outside of the guiding
catheter tip. The wire was advanced into the obtuse marginal, beyond the 70% proximal circumflex lesion. Three iFR measurements were taken. The lesion was determined to be occlusive (0.88). The IFR wire was withdrawn.
The decision was made to proceed with percutaneous coronary intervention. A Power Turn Flex wire was advanced into the distal obtuse marginal. The 70% proximal circumflex lesion was predilated with a 3.0 x 12 semi-compliant balloon to 12 zak. The
semi-compliant balloon was removed and a Medtronic Jermyn Newton 3.0 x 18 drug-eluting stent was advanced. The stent was deployed at 12 atmospheres. The stent balloon was removed. A
The decision was made to perform intracoronary imaging. An IVUS catheter was advanced through the guiding catheter and into the ostium of the artery. Ring down was performed once the imaging crystal was no longer inside of the guiding catheter. The
IVUS catheter was advanced into the obtuse marginal. Intravascular ultrasound was performed in a retrograde fashion using a slow pullback. Intracoronary imaging demonstrated good stent apposition in the distal and mid stent with mild underexpansion
in the mid stent. The vessel was mildly mal-opposed in the proximal margin. Vessel size measurements were obtained.
A 3.25 x 12 noncompliant balloon was advanced into the stent and the stent was postdilated to 12 atmospheres throughout. The 3.25 x 12 noncompliant balloon was withdrawn and a 3.5 x 8 noncompliant balloon was advanced. The mid stent and proximal
stent margin were postdilated to 15 zak. The noncompliant balloon was withdrawn.
Angiography was performed in orthogonal views, confirming good stent expansion and an excellent angiographic result. The coronary wire was withdrawn and the guide was disengaged from the artery. The catheter was removed over a standard J-wire.
Closure Device: Vascular band.
Radiation (mGy): 696.24
DAP (cm2.Gy): 57.9662
Fluoroscopy time (minutes): 10.5
CONCLUSIONS
1. Right dominant circulation with prior PCI of the proximal and mid RCA and an occlusive, 70% proximal circumflex lesion (IFR = 0.88) status post successful IVUS guided PCI (Medtronic Boris Newton 3.0 x 18 RAJI, postdilated with a 3.25 NC balloon
throughout and a 3.5 x 8 NC balloon in the mid stent and proximal stent) with reduction in stenosis to 0%, maintaining MELVIN-3 flow.
2. Moderately elevated filling pressures (LVEDP = 20 mmHg at 100.2 kg).
RECOMMENDATIONS:
1. Expectant management after cardiac catheterization via right radial approach.
2. Limited weight bearing on the right for one week.
3. Maintain dual antiplatelet therapy with aspirin and prasugrel for at least 12 months, followed by aspirin indefinitely.
4. Continue aggressive secondary prevention with high-dose, high potency statin. Goal LDL <55.
5. OMT/GDMT as hemodynamics will tolerate.
6. Start furosemide 40 mg p.o. daily. BMP in 1 week.
7. Referral to cardiac rehab.
Copy to: To Mari D.O.
To Mari DO, FACC, FACP
[2024-07-13] MEDS: NSS 1000 IV (11:30)
--- NOTE | 2024-07-13 14:53 | W.PN.UPDATE ---
Update Note
Progress Note Update
54 yo WM s/p PCI LCx (same day). He denies cp, sob, ankit diet, voiding, EKG SR with PAC's, R rad TR band in place, no HT. He will continue DAPT ASA/Prasugrel. His LVEDP was 20 and we will start lasix 40mg daily with BMP next week. Cardiac rehab c/s.
He will f/u CAPSULE INSPECTOR in 2 weeks. He is for d/c home after 4pm.
CONCLUSIONS
1. Right dominant circulation with prior PCI of the proximal and mid RCA and an occlusive, 70% proximal circumflex lesion (IFR = 0.88) status post successful IVUS guided PCI (Medtronic [place] 3.0 x 18 RAJI, postdilated with a 3.25 NC balloon
throughout and a 3.5 x 8 NC balloon in the mid stent and proximal stent) with reduction in stenosis to 0%, maintaining MELVIN-3 flow.
2. Moderately elevated filling pressures (LVEDP = 20 mmHg at 100.2 kg).
RECOMMENDATIONS:
1. Expectant management after cardiac catheterization via right radial approach.
2. Limited weight bearing on the right for one week.
3. Maintain dual antiplatelet therapy with aspirin and prasugrel for at least 12 months, followed by aspirin indefinitely.
4. Continue aggressive secondary prevention with high-dose, high potency statin. Goal LDL <55.
5. OMT/GDMT as hemodynamics will tolerate.
6. Start furosemide 40 mg p.o. daily. BMP in 1 week.
7. Referral to cardiac rehab.
== END 2024-07-13 15:58 | disposition home or self-care (01) ==
LOC: CATH 07:48
PROVIDERS: ATTENDING PHYSICIAN Internal Medicine Cardiovascular Disease
DX: I25.10 Atherosclerotic heart disease of native coronary artery without angina pectoris (principal); I21.19 ST elevation (STEMI) myocardial infarction involving other coronary artery of inferior wall; Z79.02 Long term (current) use of antithrombotics/antiplatelets; Z72.0 Tobacco use; E78.5 Hyperlipidemia, unspecified; I47.20 Ventricular tachycardia, unspecified; Z86.74 Personal history of sudden cardiac arrest
CPT/HCPCS: 93799; 92978; 85347; 93005; 93458; C1725; C1753; C1769; C1874; C1894; C9600; Q9967

== ENCOUNTER 2024-07-20 13:39 | Outpatient (RCR) | payer BC, SELFPAY | END 2024-07-20 23:59 | disposition home or self-care (01) | LOC: CRHB 13:39 | PROVIDERS: ATTENDING PHYSICIAN Internal Medicine Cardiovascular Disease | DX: Z95.5 Presence of coronary angioplasty implant and graft (principal) | CPT/HCPCS: 93797; 93798 ==

== ENCOUNTER 2024-10-10 16:28 | Inpatient (IN) | payer BC, SELFPAY ==
[2024-10-10 13:26] VITALS: BP 125/93
--- NOTE | 2024-10-10 13:55 | ED.GENMED ---
History of Present Illness
General
Chief Complaint: Skin Problem
Source: patient
Exam Limitations: none
Time Seen by Provider: 10/10/24 13:33
History of Present Illness
History of Present Illness:
54yo right hand dominant male with a history of coronary artery disease s/p PCI presenting for evaluation of left ring finger swelling x 3-4 days. Patient reports gradually worsening swelling to the distal finger. He woke up this morning and his
finger was so swollen he was unable to get his ring off. He reports severe throbbing pain in the finger. He also noticed some red streaking up the arm and decided to come to the ED. He denies any fevers or chills. No prior history of MRSA. No
reported injury to the finger although he admits to biting his fingernails.
Past History
Past History
ED Past Medical History: Other (Cardiomegaly. emphysema); Negative HTN, Hypercholesterolemia or NIDDM
ED Past Surgical History: None
Social History
Tobacco: Smoker
Alcohol: Former
Personal:
Living: with family
Employment: Not employed
Family History
Family History: Unable to obtain
Phy Exam
General Physical Exam
General Presentation: well appearing and no apparent distress
General Skin: warm and dry
General Habitus: normal
General Mental: alert
ENT Exam
ENT Exam: normocephalic
Pulmonary Exam
Pulmonary Exam: no respiratory distress
Neurological Exam
Neurological Exam: alert
Hayes Coma Scale
Eye Opening: Spontaneous
Verbal Response: Oriented
Motor Response: Obeys Commands
GCS Total Score: 15
Skin Exam
Skin Exam: other (L ring finger is erythematous with obvious swelling/fluctuance to the medial nailfold consistent with a paronychia. There also appears to be a developing felon with tense/swollen pulp. Silver ring causing external constriction to
finger. There is red streaking proximally to above the elbow. )
Psychiatric Exam
Psychiatric Exam: normal mood/affect
Course
Orders/Labs/Results
Orders:
Orders
10/10/24 Breakfast
Cholesterol Lowering
At Your Request: Full Participation
Cholesterol Lowering: Sodium, 2 Gram
10/10/24 13:41
CR Finger(s)/thumb Min 2 Vw Lt Urgent
Comment:
Reason For Exam: Ring finger infection
10/10/24 14:11
CRP [C-Reactive Protein] Urgent
Comprehensive Metabolic Panel Urgent
10/10/24 14:12
Complete Blood Count/With Diff Urgent
ESR [Erythrocyte Sed Rate] Urgent
10/10/24 14:24
Wound Culture [Wound/Abscess/Other Culture] Urgent
JOSE MANUEL Source: Abscess
Specimen Description:
Date Specimen was Collected: 10/10/24
Time Specimen was Collected: 14:22
Comment: L ring/ #4 finger tip
10/10/24 14:38
Cefepime HCl [Maxipime] 2,000 mg IV NOW STA
10/10/24 14:[address] Non Medication Order As Directed
Physician Order: Please weigh patient
Above order entered?: Yes
10/10/24 15:16
Vancomycin [Vancocin] 2,000 mg 0.9% Sodium Chloride 500 ml [Nss] 500 ml IV NOW
10/10/24 15:23
MRSA Screen Routine
JOSE MANUEL Source: Nose
Specimen Description:
10/10/24 15:54
Admit/Transfer Patient As Directed
Co-Sign Provider:
Level of Care: Inpatient admission
Assign to:: Medical/Surgical
Physician / Group: Htay
Diagnosis: Left Finger Cellulitis / Abscess
Reason for Hospitalization: IV abx
Expected length of stay greater than two midnights?: Yes
ELOS- Estimated Length of Stay in days: 3
I certify the patient meets the requirements for IP care: Yes
PRN Pain Medication Management As Directed
May give lesser potent ordered pain med per pt: Yes
preference::
Protocol:: Medication orders for pain may be administered in a
manner that supports deferring to patient preference
when the pt is:
- Requesting an ordered lesser potent pain medication.
Least to most potent pain medications are defined
as: acetaminophen < NSAID < tramadol < opioids
(morphine, oxycodone, hydromorphone).
- Requesting a lesser dose of the same medication IF
ORDERED.
- Requesting a less intrusive route of administration
if both routes are prescribed by the provider (PO <
IV).
10/10/24 15:55
Code Status As Directed
Resuscitation Status: Full Code
10/10/24 18:52
Acetaminophen [Tylenol] 650 mg PO Q4HPRN PRN
Rosuvastatin Calcium [Crestor] 20 mg PO QPM
VANCOMYCIN Pharmacy to Dose [VANCOCIN Pharmacy to Dose] 1 each Pharmacy To Prepare [Call Pharmacy To Prepare] 0 ml IV PER PROTOCOL
10/10/24 18:52
ORTHOPEDIC CONSULT Routine
Consulting Provider: Andrea Holder
Was physician already notified: Yes
Activity As Directed
Activity Level: Out of Bed-Early Mobility
With Assistance
I&O [Intake/ Output] As Directed
Frequency: q12h
Pneumatic Compression Sleeves As Directed
Type: Knee high
Vital Signs As Directed
Frequency: Per unit guidelines
Smoking Cessation Counseling [RESP] Routine
DX Deep Vein Thrombosis Video Routine
10/10/24 20:00
CeFAZolin 2 GRAM [Ancef] 2 grams in 10 ml IV Q8H
10/11/24 06:00
Basic Metabolic Panel IN AM
Complete Blood Count/No Diff IN AM
10/11/24 08:00
Aspirin Chewable [Low Strength Aspirin] 81 mg PO DAILY
Furosemide [Lasix] 40 mg PO DAILY
Metoprolol Xl [Toprol Xl] 25 mg PO DAILY
Prasugrel Hydrochloride [Effient] 10 mg PO DAILY
Abnormal Lab Results
10/10/24 10/10/24
14:11 14:12
WBC 11.6 H 10^3/uL
(4.8-10.8)
RBC 4.57 L 10^6/uL
(4.70-6.10)
Absolute Neuts (auto) 8.3 H 10^3/uL
(1.4-6.5)
Absolute Monos (auto) 1.2 H 10^3/uL
(0.1-0.6)
Lymphocytes % 16.8 L %
(20.5-51.1)
Monocytes % 10.3 H %
(1.7-9.3)
ESR 22 H mm/hour
(0-20)
Glucose 132 H mg/dl
(70-99)
AST 16 L U/L
(17-59)
C-Reactive Protein 30.10 H mg/L
(0.0-10.00)
10/10/24 14:12
10/10/24 14:11
Vital Signs
Initial and Last Documented VS:
Initial Vital Signs
Temp Pulse Resp BP Pulse Ox
98.8 F 96 18 125/93 96
10/10/24 13:26 10/10/24 13:26 10/10/24 13:26 10/10/24 13:26 10/10/24 13:26
Last Documented Vital Signs
Temp Pulse Resp BP Pulse Ox
98.8 F 81 16 126/74 97
10/10/24 13:26 10/10/24 17:13 10/10/24 17:13 10/10/24 17:13 10/10/24 17:13
Procedures
Incision/Drainage/Joint Aspiration
Left Fourth Finger(s):
Anethesia: 1% Lidocaine (digital block)
Preparation: cleaned with Betadine
Type of procedure: incise and drain
Nature of site: abscess
Description of abscess: less than 3cm
Loculations broken up: Yes
How much fluid was obtained?: large amount
Fluid description: purulent
Treatment: left open for drainage and antibiotics started
MDM/Problems Addressed
Differential Diagnosis Includes:
54yoM here with an infection to the L ring finger. No f/c. There is evidence of a paronychia and developing felon on exam. There is also red streaking up the arm consistent with lymphangitis. Ring noted to proximal digit which is causing external
constriction. Low clinical suspicion for osteomyelitis or NSTI.
Ring was removed with ring cutter. I&D performed at bedside with return of a large amount of purulence. Wound culture sent. Labs revealed a mild leukocytosis with a white count of 11.6. ESR and CRP are also elevated. Finger x-rays negative for
osseous abnormalities. Case discussed with orthopedics. Given severity of infection, IV cefepime and vancomycin ordered. Patient admitted for further management.
*Critical Care Note
Total Time (30-74mins, 75-104mins- exclusive of procedures): Not Applicable
ED Attending Note
-
Portions of this chart may have been created with voice recognition software.� Occasional wrong word or��sound alike� substitutions may have occurred due to the inherent limitations of voice recognition software.
Discharge Plan
Departure
Patient Disposition: Admit
Date of Disposition: 10/10/24
Time of Disposition: 15:09
Presentation/result/management discussed w/ accepting MD/DO: Hospitalist
Discharge Problem:
Paronychia of left ring finger, Lymphangitis of upper extremity
Interventions
Interventions:
*Risk Screen - Suicide Last Done: 10/10/24 14:10
*General Assessment Last Done: 10/10/24 14:10
*Neglect/Abuse Screening Last Done: 10/10/24 14:10
*ED- Fall Risk Assessment Last Done: 10/10/24 14:10
*ED COVID-19 Vaccine History Last Done: 10/10/24 14:10
*Nursing Disposition Last Done: 10/10/24 18:33
ED-Skin Assessment Last Done: 10/10/24 14:10
Discharge Date and Time
Discharge Date/Time: 10/10/24 18:33
--- NOTE | 2024-10-10 14:01 | EDRN ---
Miranda RIZVI in room w/ pt at this time.
[2024-10-10 14:10] VITALS: BMI 33.8
--- NOTE | 2024-10-10 14:30 | EDRN ---
Ring removed at this time.
[2024-10-10 14:31] LABS: % Basophils 0.4 % (0-2); % Eosinophils 0.4 % (0-6); % Immature Granulocytes 0.3 % (0-0.5); % Lymphocytes 16.8 % (20.5-51.1); % Monocytes 10.3 % (1.7-9.3); % Neutrophils 71.8 % (42.2-75.2); Absolute Basophils 0.1 10^3/uL (0-0.2); Absolute Eosinophils 0.1 10^3/uL (0-0.7); Absolute Lymphocytes 1.9 10^3/uL (1.2-3.4); Absolute Monocytes 1.2 10^3/uL (0.1-0.6); Absolute Neutrophils 8.3 10^3/uL (1.4-6.5); Hematocrit 40.7 % (39.0-52.0); Hemoglobin 13.8 g/dL (13.0-18.0); Mean Corp Hgb Conc. 33.9 g/dL (33.0-37.0); Mean Corpuscular Hgb 30.2 pg (27.0-31.0); Mean Corpuscular Volume 89.1 fL (80.0-94.0); Mean Platelet Volume 10.2 fL (7.4-10.4); Nucleated Red Blood Cells % 0 % (-); Platelet Count 239 10^3/uL (130-400); Red Blood Cell Count 4.57 10^6/uL (4.70-6.10); Red Cell Dist. Width 13.2 % (11.5-14.5); White Blood Cell Count 11.6 10^3/uL (4.8-10.8)
--- NOTE | 2024-10-10 14:38 | EDRN ---
Miranda RIZVI drained abscess at this time.
[2024-10-10 14:41] LABS: Erythrocyte Sed Rate 22 mm/hour (0-20)
[2024-10-10 14:49] LABS: ALT (SGPT) 18 U/L (0-50); AST (SGOT) 16 U/L (17-59); Albumin 3.8 g/dl (3.5-5.0); Alkaline Phosphatase 64 U/L (38-126); Blood Urea Nitrogen 11 mg/dl (9-20); Calcium 8.8 mg/dl (8.4-10.2); Carbon Dioxide 29 mmol/L (22-30); Chloride 104 mmol/L (98-107); Estimated Creatinine Clearance > 125 ml/min; Glucose 132 mg/dl (70-99); Potassium 3.8 mmol/L (3.5-5.1); Sodium 138 mmol/L (135-145); Total Bilirubin 0.5 mg/dl (0.2-1.3); Total Protein 6.3 g/dl (6.3-8.2); eGFR > 60.00
[2024-10-10] MEDS: MAXIPIME 2000 MG IV (15:01)
[2024-10-10 15:15] VITALS: BP 137/92
--- NOTE | 2024-10-10 15:16 | EDRN ---
Pharmacy called for rupindero order.
--- NOTE | 2024-10-10 15:17 | HPS.HSE ---
Family Physician
-
Family Physician: * NONE
Chief Complaint
-
Pain and Swelling of Left 4th Finger
History of Present Illness
Patient is a 54 y/o male past medical history of STEMI with VF/VT arrest in Jun 2024, Coronary Artery Disease with most recent stent in Jul 2024, Chronic HFpEF, Hypertension and Hyperlipidemia who presents with increasing pain and swelling of the
left 4th finger. Patient reports he initially noticed the finer starting to swell about 4 days ago, and then 2 days ago he noticed redness on the upper arm. Patient denies any associated fevers.
Medical History
Past Medical History
Past Medical History: Reports Other
Additional Past Medical History:
Coronary Artery Disease s/p Multiple Stents (most recent Jul 2024)
STEMI with VF/VT Arrest in Jun 2024
Chronic HFpEF
Essential Hypertension
Hyperlipidemia
Past Surgical History: Reports None
Social History
Tobacco: Smoker (1 PPD)
Alcohol: Occasional
Drug: None
Personal:
Living: With Family
Employment: Employed
Family History
Family History: Other (Father: CAD)
Allergies / Home Medications
Allergies reflects when Allergies were last updated in [facility].
Home Medications with original date entered in [facility]
Allergy/Medication List:
Allergies
Allergy/AdvReac Type Severity Reaction Status Date / Time
No Known Allergies Allergy Verified 10/10/24 13:29
Home Medications
aspirin 81 mg chewable tablet 81 mg PO DAILY #0 tabs 07/01/24
metoprolol succinate 25 mg tablet,extended release 24 hr 25 mg PO DAILY #90 tabs 07/01/24
prasugrel HCl 10 mg tablet 10 mg PO DAILY #90 tabs 07/01/24
rosuvastatin 20 mg tablet 20 mg PO QPM #90 tabs 07/01/24
furosemide 40 mg tablet (Lasix) 40 mg PO DAILY #90 tabs 07/13/24
Review of Systems
-
History Source: Patient
A 12 point ROS was completed and negative except as noted: Yes
Constitutional: Denies Fever
Respiratory: Denies Cough or Trouble Breathing
Cardiac: Denies Chest Pain or Palpitations
Abdomen/GI: Denies Abdominal Pain, Nausea, Vomiting, Diarrhea or Constipated
Physical Exam
Vital Signs
Vital Signs
Temp Pulse Resp BP Pulse Ox
98.8 F 96 18 125/93 96
10/10/24 13:26 10/10/24 13:26 10/10/24 13:26 10/10/24 13:26 10/10/24 13:26
Physical Exam
General: Comfortable and Conversant
HEENT: Anicteric and Moist mucous membranes
Respiratory: Clear and Non Labored Respirations
Cardiac: S1/S2 and Regular Rhythm
GI: Soft and Non Tender
Rectal: Deferred by Provider
Musculoskeletal: No Clubbing and No Cyanosis
Skin: Other (Left 4th Finger: Following I+D in the ED tip of 4th finger is bloody; Obvious swelling of the left 4th finger with erythema streaking up to the medial upper arm area)
Neuro: Awake, Alert, Oriented and Nonfocal/grossly intact
Psych: Calm
Laboratory Results
-
10/10/24 14:12
10/10/24 14:11
Laboratory Results
Total Bilirubin 0.5 mg/dl (0.2-1.3) 10/10/24 14:11
AST 16 U/L (17-59) L 10/10/24 14:11
ALT 18 U/L (0-50) 10/10/24 14:11
Alkaline Phosphatase 64 U/L (38-126) 10/10/24 14:11
Data Reviewed
-
Lab Data: Labs Reviewed by me
Impression/Plan
-
Left Finger Cellulitis with Left Arm Lymphangitis secondary to Left 4th Finger Paronychia s/p I&D in ED
-Consult Orthopedics
-Await finger x-ray
-Await wound culture
-Continue Ancef and vancomycin pending MRSA screen
Coronary Artery Disease s/p Multiple Stents (most recent Jul 2024)
STEMI with VF/VT Arrest in Jun 2024
-Continue aspirin and Effient
Chronic HFpEF
-Continue Lasix
Essential Hypertension
-Continue Metoprolol
Hyperlipidemia
-Continue Crestor
Tobacco Use Disorder
-Encourage smoking cessation
DVT proph: SCDs
Code Status: Full Code
--- NOTE | 2024-10-10 15:29 | W.PN.UPDATE ---
Update Note
Progress Note Update
This note serves as an addendum to the H&P by line haul owner operator OBED Renata FERRELL
HPI
54M smoker Rt handed HX PCI for CAD, HTN pw left 4th finger swelling x 3-4 days.
PHX: see above
Reviewed VS: stable and unremarkable red streaking up the arm to above the elbow.
PE
Gen: Not toxic
MS: Lt 4th finger paronychia with developing phlegmon
Data
WCC 11.6
Unremarkable CMP
BG 132
CRP 30
Wd Cx sent
NO PRIOR hospitalist admission:
Last admission : [facility] service 06/30/2024 - 07/02/2024
DISCHARGE DIAGNOSIS:
1. Acute inferior ST-elevation myocardial infarction.
2. Ventricular fibrillation and ventricular tachycardia arrest with CPR.
3. Status post right coronary artery thrombectomy with 2 overlapping drug-eluting stents, 06/03/2024.
4. Residual coronary artery disease, 50-60 percent proximal circumflex lesion, for medical management at this time.
5. Hyperlipidemia.
6. Chronic tobacco abuse.
ASSESSMENT & PLAN
Non diabetic Purulent SSTI of Lt 4th finger due to Paronychia s/p I & D at ER
Associated Lt UEx lymphangitis
Not sepsis
- s/p I & D at ER
- Wd Cx sent
- MRSA screen
- Empiric Vanco and IV Cefazolin to cover MRSA /MSSA
- f/u XR Lt Finger
- Hand surgeon consulted
Recent complex cardiac HX in Jun 2024
- STEMI
- VF/VT arrest with CPR.
- S/P RCA thrombectomy with 2 overlapping RAJI stents 06/03/2024.
- Residual CAD 50-60 percent proximal circumflex lesion
- for medical management ( ASA, Metoprolol, Prsurgrel , Rosuvastatin )
- OP Card follow up
Hyperlipidemia.
- on Rosuvastatin
Chronic tobacco abuse
- cessation of smoking addressed
DVT Px: SCD
Full code
IP MS
[2024-10-10] MEDS: VANCOCIN 540 MG IV (15:33)
--- NOTE | 2024-10-10 15:35 | EDRN ---
Dr. Vazquez in to see pt. Pt is soaking finger at this time in warm soapy water.
--- NOTE | 2024-10-10 15:36 | EDRN ---
Etelvina RIZVI in room w/ pt at this time.
[2024-10-10 17:13] VITALS: BP 126/74
--- NOTE | 2024-10-10 18:04 | WOUNDNOTE ---
WOUND/SKIN care note: Pt identified by name and .
L finger #4/Ring finger
L finger #4/ ring finger palmar surface
redness on dorsal aspect of hand and wrist
Streaking on palmar surface of arm from infected L finger #4/ring finger.
[2024-10-10 18:34] VITALS: BMI 32.6
--- NOTE | 2024-10-10 19:08 | PHA.VAN.IN ---
Assessment
- Assessment
Renal Function: Appears similar to baseline
Concomitant Antimicrobials: ANCEF
- Previous Dosing Experience
Previous Regimen: NONE
AUC Dosing Plan
- Dosing Variables
Dosing Weight (kg): 108.8
Dosing CrCl (ml/min): 100
Vd coefficient (L/kg): 0.6
- Empiric Dosing
Initial / Loading Dose: 2GM
Maintenance Regimen: 1250MG IV Q12H
Estimated AUC (mcg*h/mL): 467
Estimated Peak (mcg*h/mL): 29.5
Estimated Trough (mcg/ml): 11.8
Estimated Half Life (H): 7.9
Pharmacokinetics Vancomycin I
- -
Patient Age: 54
Patient Sex: Male
Vancomycin Day #: 1
Indication: Skin And Soft Tissue (LEFT FINGER CELLULITIS)
Requesting Provider: MARIAELENA
Height / Weight:
Height 6 ft
Actual Weight 108.817 kg
- Vital Signs / Lab Results
Temp Pulse Resp BP Pulse Ox
98.8 F 81 16 126/74 97
10/10/24 13:26 10/10/24 17:13 10/10/24 17:13 10/10/24 17:13 10/10/24 17:13
Lab Results - Hematology
10/10/24
14:12
WBC 11.6 H
Lab Results - Chemistry
10/10/24
14:11
BUN 11
Creatinine 0.7
Estimated Creat Clear > 125
Albumin 3.8
Microbiology Results
10/10/24 14:24 Gram Stain - Preliminary
Abscess
[2024-10-10] MEDS: CRESTOR 20 MG PO (20:02)
[2024-10-10] MEDS: ANCEF 10 IV (20:30)
[2024-10-10 23:05] VITALS: BP 121/63
[2024-10-11] MEDS: ANCEF 10 IV (04:47)
[2024-10-11] MEDS: VANCOCIN 275 MG IV (05:09)
[2024-10-11 07:33] LABS: Hemoglobin 13.4 g/dL (13.0-18.0); Mean Corp Hgb Conc. 32.7 g/dL (33.0-37.0); Mean Corpuscular Hgb 29.8 pg (27.0-31.0); Mean Corpuscular Volume 91.1 fL (80.0-94.0); Mean Platelet Volume 10.6 fL (7.4-10.4); Platelet Count 219 10^3/uL (130-400); Red Cell Dist. Width 13.3 % (11.5-14.5); White Blood Cell Count 8.4 10^3/uL (4.8-10.8)
[2024-10-11 07:44] LABS: Blood Urea Nitrogen 13 mg/dl (9-20); Calcium 8.6 mg/dl (8.4-10.2); Carbon Dioxide 28 mmol/L (22-30); Chloride 111 mmol/L (98-107); Estimated Creatinine Clearance > 125 ml/min; Glucose 111 mg/dl (70-99); Potassium 4.4 mmol/L (3.5-5.1); Sodium 141 mmol/L (135-145); eGFR > 60.00
--- NOTE | 2024-10-11 07:50 | CON.ORTHO ---
Consultation
-
Date/Time Consultation Requested: 10/10/24
Date/Time Consultation Performed: 10/11/24 @7:40am
Requesting Provider: ER Provider
Performing Provider: Keshia Falcon PA-C
Reason for Consultation: left finger felon
Consultation - Orthopedics
History
HPI: 54yo male presents admitted to [facility] for left finger infection. He reports that a few days ago, he noticed a small amount of swelling and redness adjacent to the nail of his left ring finger. Yesterday, he noticed some redness
starting to appear to his left arm. He presented to the ER yesterday for evaluation as the swelling of the finger worsened and he was unable to remove his ring. He reports no injury that he knows of to the finger however he does bite his nails. He
denies fever, chills. He is right hand dominant. He ring was removed in the ER and an I&D was performed. Wound culture was sent. He has been started on cefazolin and vancomycin. Currently, he reports no significant pain in the finger only some
tenderness if he bumps the area.
PAST MEDICAL HISTORY: STEMI with VF/VT arrest in Jun 2024, Coronary Artery Disease with most recent stent in Jul 2024, Chronic HFpEF, Hypertension and Hyperlipidemia
PAST SURGICAL HISTORY: None
SOCIAL HISTORY: current smoker 1PPD. denies alcohol
FAMILY HISTORY: Noncontributory
REVIEW OF SYSTEMS: 12 point review of systems obtained and negative except those mentioned in the HPI
Allergies / Home Medications
Allergy/AdvReac Type Severity Reaction Status Date / Time
No Known Allergies Allergy Verified 10/10/24 13:29
�Medication �Instructions �Recorded
aspirin 81 mg chewable tablet 81 mg PO DAILY #0 tabs 07/01/24
metoprolol succinate 25 mg 25 mg PO DAILY #90 tabs 07/01/24
tablet,extended release 24 hr
prasugrel HCl 10 mg tablet 10 mg PO DAILY #90 tabs 07/01/24
rosuvastatin 20 mg tablet 20 mg PO QPM #90 tabs 07/01/24
furosemide 40 mg tablet (Lasix) 40 mg PO DAILY #90 tabs 07/13/24
Vital Signs / Lab Results
Temp Pulse Resp BP Pulse Ox
98.9 F 85 16 121/63 94
10/10/24 23:05 10/10/24 23:05 10/10/24 23:05 10/10/24 23:05 10/10/24 23:05
10/11/24 06:51
10/11/24 06:51
RADIOGRAPHIC FINDINGS:
Xrays left hand reveal diffuse soft tissue swelling. Irregularity involving the dorsal soft tissues at the nailbed, suggestive of injury/laceration. No evidence of soft tissue air or radiopaque foreign body. No radiographic evidence for
osteomyelitis.
PHYSICAL EXAM:
General: no acute distress
HEENT: NCAT, sclera anicteric, normal hearing
Heart: No JVD
Lungs: normal work of breathing on room air
MSK: Focused exam of left hand reveals ring finger with erythema to dorsal aspect surrounding nail. there is erythema to medial forearm. this does seem improved from area that was marked in the ER. decreased flexion of the DIP joint of the ring
finger. +TTP over distal phalanx right finger. sensation intact to light touch. cap refill <2secs
Assessment / Plan
ASSESSMENT/PLAN:
Left ring finger paronychia
--Continue with antibiotics, currently cefazolin and vancomycin
--Wound culture pending
--Recommend warm soaks with dilute hibiclens three times per day
--Allow finger to completely dry then apply dry dressing of nonadherent pad, kerlix, and tape
--Encourage range of motion as tolerated
--Will continue to follow
[2024-10-11 07:51] VITALS: BP 120/93
[2024-10-11] MEDS: TOPROL XL 25 MG PO (08:32)
[2024-10-11] MEDS: LASIX 40 MG PO (08:32)
[2024-10-11] MEDS: EFFIENT 10 MG PO (08:33)
[2024-10-11] MEDS: LOW STRENGTH ASPIRIN 81 MG PO (08:33)
--- NOTE | 2024-10-11 08:39 | W.PN.HOSP.TC ---
Today's Communication/Plan
-
c/w IV Abx
Wound care
Assessment / Plan
Assessment / Plan
Physical Exam
General: Comfortable and Conversant
HEENT: Anicteric and Moist mucous membranes
Respiratory: Clear and Non Labored Respirations
Cardiac: S1/S2 and Regular Rhythm
GI: Soft and Non Tender
Rectal: Deferred by Provider
Musculoskeletal: No Clubbing and No Cyanosis
Skin: Other (Left 4th Finger: Following I+D in the ED tip of 4th finger is bloody; Obvious swelling of the left 4th finger with erythema streaking up to the medial upper arm area)
Neuro: Awake, Alert, Oriented and Nonfocal/grossly intact
Psych: Calm
# Left ring finger paronychia
Pain is less, doing wound care . WBC normal now, no fevers.
Left Finger Cellulitis with Left Arm Lymphangitis secondary to Left 4th Finger Paronychia s/p I&D in ED
Finger x-ray with no evidence of soft tissue air or radiopaque foreign bod, c/w soft tissue swelling.
-Await wound culture
- pain control with Tylenol/ Tramadol
-Continue Ancef and vancomycin
Appreciate ortho & ID Help
#Coronary Artery Disease s/p Multiple Stents (most recent Jul 2024)
STEMI with VF/VT Arrest in Jun 2024
No chest pain or sob
-Continue aspirin and Effient
Chronic HFpEF
-Continue Lasix
Essential Hypertension
-Continue Metoprolol
Hyperlipidemia
-Continue Crestor
Tobacco Use Disorder
-Encourage smoking cessation
DVT proph: SCDs
Code Status: Full Code
Total time spent to see the patient, examine the patient, review data and lab results, discuss treatment plan with patient, nursing staff around 55 minutes.
Anticipated Discharge: 24 - 48 hours
Subjective/Interval History
-
Date of Service: October 11, 2024
pain in left finger is not worse
no fever
no chest pain
Objective Data
-
Labs:
Laboratory Results
10/11/24
06:51
WBC 8.4
Hgb 13.4
Hct 41.0
Plt Count 219
Sodium 141
Potassium 4.4
Chloride 111 H
Carbon Dioxide 28
BUN 13
Creatinine 0.7
Glucose 111 H
Calcium 8.6
Vital Signs:
Vital Signs
Temp Pulse Resp BP Pulse Ox
97.5 F 73 20 120/93 96
10/11/24 07:51 10/11/24 08:32 10/11/24 07:51 10/11/24 08:32 10/11/24 07:51
I&O
10/10/24 10/11/24 10/12/24
06:59 06:59 06:59
Intake Total 755 / 755
Balance 755 / 755
--- NOTE | 2024-10-11 10:38 | CON.ID ---
Consultation
-
Date/Time Consultation Requested: October 11, 2024 0626
Date/Time Consultation Performed: October 11, 2024 1040
Requesting Provider: Dr. Iliana Mckeon
Performing Provider: Dr. Wendy Ching
Reason for Consultation: Left hand infection
Chief Complaint / Past History
Chief Complaint
Finger swelling and redness
History of Present Illness
54-year-old male with history of CAD, hypertension who presented to the hospital on October 10 due to left fourth finger redness, swelling, and pain. Approximately 5 days ago he noted that around the nailbed there was redness and discomfort. Over the
next few days the redness spread and his finger became more swollen. There was an abscess around the nailbed. The redness went up to his forearm. No fevers or chills. In the ER he is afebrile. White count 11.6. He was started on vancomycin and
cefazolin. X-ray of the finger showed no osteomyelitis, positive Irregularity involving the dorsal soft tissue at the nailbed. In the ER the abscess was lanced, culture pending. Patient denies trauma to his finger. 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 He does admit to biting his fingernails occasionally.
Past History
Additional Past Medical History:
CAD s/p PCI/stents
HFpEF
HTN
HLD
Allergy History:
No Known Allergies Allergy (Verified 10/10/24 13:29)
Medications Reviewed: Yes
Current Antibiotics:
Vancomycin
Cefazolin
Social History
Tobacco: Smoker (1ppd)
Alcohol: Occasional
Drug: None
Personal:
Employment: Employed (Works at [employer])
Review of Systems
Review of Systems
General: Negative Fever, Chills or Change in Appetite
HEENT: Negative Sinus Problems or Headache
Cardiovascular: Negative Chest Pain or Dyspnea
Respiratory: Negative Dyspnea or Cough
Gasteroenterology: Negative Nausea, Vomiting or Diarrhea
Genital / Urological: Negative Dysuria or Flank Pain
Endocrine: Negative Weakness
Neurological: Negative Dizziness
All systems: All other systems were reviewed and were negative
Vital Signs
Temp Pulse Resp BP Pulse Ox
97.5 F 73 20 120/93 96
10/11/24 07:51 10/11/24 08:32 10/11/24 07:51 10/11/24 08:32 10/11/24 10:07
Physical Exam
Physical Exam
Constitutional: No Acute Distress and Comfortable
Eyes: No Conjunctival Hemorrhage and Sclera Anicteric
Cardiovascular: Regular Rate and S1/S2
Pulmonary: Clear
Gastrointestinal: Soft, Non Tender, Non Distended and Normal Bowel Sounds
Genito-Urinary: Negative CVA Tenderness
Extremities: Other (Left 4th finger + induration/erythema around nail bed extending to mid phalanx; forearm erythema receding. Proximal nail fold with abscess draining bloody pus. )
Lab / Diagnostic Study Results
10/11/24 06:51
10/11/24 06:51
Abs Immat Gran (auto) 0.0 10^3/uL (0-0.05) 10/10/24 14:12
Absolute Neuts (auto) 8.3 10^3/uL (1.4-6.5) H 10/10/24 14:12
Absolute Lymphs (auto) 1.9 10^3/uL (1.2-3.4) 10/10/24 14:12
Absolute Monos (auto) 1.2 10^3/uL (0.1-0.6) H 10/10/24 14:12
Absolute Basos (auto) 0.1 10^3/uL (0-0.2) 10/10/24 14:12
Immature Gran % 0.3 % (0-0.5) 10/10/24 14:12
Neutrophils % 71.8 % (42.2-75.2) 10/10/24 14:12
Lymphocytes % 16.8 % (20.5-51.1) L 10/10/24 14:12
Monocytes % 10.3 % (1.7-9.3) H 10/10/24 14:12
Eosinophils % 0.4 % (0-6) 10/10/24 14:12
Basophils % 0.4 % (0-2) 10/10/24 14:12
ESR 22 mm/hour (0-20) H 10/10/24 14:12
C-Reactive Protein 30.10 mg/L (0.0-10.00) H 10/10/24 14:11
Microbiology Results
Micro:
10/10/24 20:36 MRSA Screen - Pending
Nose
10/10/24 14:24 Wound Culture - Pending
Abscess Gram Stain - Preliminary
10/10/24 Finger XRAY: Irregularity involving the dorsal soft tissues at the nailbed, suggestive of injury/laceration. No evidence of soft tissue air or radiopaque foreign body.
Assessment / Plan
# Severe left 4th finger paronychia with abscess and cellulitis
- Abscess lanced in ED. Gram stain polymicrobial org.
- DC cefazolin and Vancomycin.
- start Unasyn to cover oral brown. Pt tends to bite his fingernails - may be source of infection.
--- NOTE | 2024-10-11 11:07 | CM ---
Patient seen bedside.
IA completed.
Patient Lives with spouse and daughters in a 1 story home with a few steps to enter.
No AD, independent prior to admission.
Drives, works.
No hx VN.
Patient aware of CM availability should needs arise.
PCP: None (list provided)
Pharmacy: [facility] [address]
Plan: home no needs anticipated.
,
[2024-10-11] MEDS: UNASYN IV ×3 (11:36→23:02)
[2024-10-11 15:31] VITALS: BP 119/65
[2024-10-11] MEDS: CRESTOR 20 MG PO (17:29)
[2024-10-11] MEDS: NICODERM TRANSDERMAL 21 MG TRANSDERM (19:24)
[2024-10-11 23:20] VITALS: BP 127/72
[2024-10-12] MEDS: UNASYN IV ×4 (05:07→23:01)
[2024-10-12] MEDS: LOW STRENGTH ASPIRIN 81 MG PO (07:38)
[2024-10-12] MEDS: TOPROL XL PO (07:38)
[2024-10-12] MEDS: LASIX 40 MG PO (07:39)
[2024-10-12 07:53] VITALS: BP 139/83
--- NOTE | 2024-10-12 07:56 | W.PN.UPDATE ---
Update Note
Progress Note Update
Patient has left fourth finger paronychia with abscess/cellulitis with status post bedside I&D by Dr. Knapp. He has started with warm soaks 3 times daily. If there is no fever and white count is normal. Patient and nurse feel as though there has
been much improvement. Erythema by the elbow seems to be improving nicely. The I&D portion on his finger has some serosanguineous drainage but no purulence. Swelling and redness around the fourth finger has improved as well. Distal neurovascular
was intact. I recommend that he continue with warm soaks and Unasyn per ID recommendations. Suggest observation until tomorrow and if he continues to look good hopefully switch to p.o. antibiotics and sent home.
[2024-10-12] MEDS: NICODERM TRANSDERMAL 21 MG TRANSDERM (09:10)
--- NOTE | 2024-10-12 09:34 | CM ---
Wound to 4 th left finger .
Maintained on 2 IV antibiotics.
As per MD note pt will be dc on po antibiotics.
PLAN Home no needs
[2024-10-12] MEDS: EFFIENT 10 MG PO (10:35)
--- NOTE | 2024-10-12 11:46 | W.PN.HOSP.TC ---
Today's Communication/Plan
-
Wants to go home possible discharge, will reach out to ID.
less pain in finger
Assessment / Plan
Assessment / Plan
Physical Exam
General: Comfortable and Conversant
HEENT: Anicteric and Moist mucous membranes
Respiratory: Clear and Non Labored Respirations
Cardiac: S1/S2 and Regular Rhythm
GI: Soft and Non Tender
Rectal: Deferred by Provider
Musculoskeletal: No Clubbing and No Cyanosis
Skin: Other (Left 4th Finger: Following I+D in the ED tip of 4th finger is bloody; Obvious swelling of the left 4th finger with erythema streaking up to the medial upper arm area)
Neuro: Awake, Alert, Oriented and Nonfocal/grossly intact
Psych: Calm
# Left ring finger paronychia
Pain is less, doing wound care . WBC normal now, no fevers.
Left Finger Cellulitis with Left Arm Lymphangitis secondary to Left 4th Finger Paronychia s/p I&D in ED
Finger x-ray with no evidence of soft tissue air or radiopaque foreign bod, c/w soft tissue swelling.
Superficial wound culture polymicrobial
- pain control with Tylenol/ Tramadol
-Status post Ancef and vancomycin, currently on Unasyn.
Appreciate ortho & ID Help
#Coronary Artery Disease s/p Multiple Stents (most recent Jul 2024)
STEMI with VF/VT Arrest in Jun 2024
No chest pain or sob
-Continue aspirin and Effient
Chronic HFpEF
-Continue Lasix
Essential Hypertension
-Continue Metoprolol
Hyperlipidemia
-Continue Crestor
Tobacco Use Disorder
Order nicotine patch
-Encourage smoking cessation
DVT proph: SCDs
Code Status: Full Code
Total discharge time spent to see the patient, examine the patient, review data and lab results, discuss discharge /treatment plan with patient, nursing staff around 67 minutes.
Anticipated Discharge: Today
Subjective/Interval History
-
Date of Service: October 12, 2024
Doing better
Objective Data
-
Vital Signs:
Vital Signs
Temp Pulse Resp BP Pulse Ox
97.7 F 57 18 139/83 98
10/12/24 07:53 10/12/24 07:53 10/12/24 07:53 10/12/24 07:53 10/12/24 10:08
I&O
10/11/24 10/12/24 10/13/24
06:59 06:59 06:59
Intake Total 755 / 755 940 / 940
Balance 755 / 755 940 / 940
--- NOTE | 2024-10-12 12:01 | W.PN.ID1 ---
Date of Service
Date of Service: October 12, 2024
Today's Communication
Continue Unasyn for now.
Tomorrow, anticipate transition to Augmentin 875mg po bid x 10 more days.
Assessment / Plan
# Severe left 4th finger paronychia with abscess and cellulitis
- Abscess lanced in ED. Gram stain polymicrobial org. Cx mix skin brown.
- Continue Unasyn for now. Pt tends to bite his fingernails - may be source of infection.
- Tomorrow, anticipate transition to Augmentin 875mg po bid x 10 more days.
# Right arm phlebitis from pIV.
- To dc IV.
- Apply warm compress.
Chief Complaint
-: Cellulitis
Subjective / Review of Systems
Finger improving.
Right arm pIV site swelling.
Vital Signs / Physical Exam
Vital Signs
Vital Signs
Temp Pulse Resp BP Pulse Ox
97.7 F 57 18 139/83 98
10/12/24 07:53 10/12/24 07:53 10/12/24 07:53 10/12/24 07:53 10/12/24 10:08
Physical Exam
Constitutional: No Acute Distress and Comfortable
Cardiovascular: Regular Rate and S1/S2
Pulmonary: Clear
Gastrointestinal: Soft, Non Tender and Non Distended
Extremities: Edema and Other (left forearm streaking erythema resolved. Left 4th finger erythema/ edema slightly improved. Right antecubital area of induration and erythema next to peripheral IV site. )
Neurological: AO x 3
Objective Data
Lab Data
Lab Results
10/11/24 06:51
10/11/24 06:51
ESR 22 mm/hour (0-20) H 10/10/24 14:12
Estimated Creat Clear > 125 ml/min 10/11/24 06:51
Total Bilirubin 0.5 mg/dl (0.2-1.3) 10/10/24 14:11
AST 16 U/L (17-59) L 10/10/24 14:11
ALT 18 U/L (0-50) 10/10/24 14:11
Alkaline Phosphatase 64 U/L (38-126) 10/10/24 14:11
C-Reactive Protein 30.10 mg/L (0.0-10.00) H 10/10/24 14:11
Most recent labs reviewed.
Micro Results:
10/10/24 14:24 Wound Culture - Final
Abscess Gram Stain - Final
10/10/24 20:36 MRSA Screen - Final
Nose No Methicillin Resistant Staphylococcus aureus isolated.
10/10/24 Finger XRAY: Irregularity involving the dorsal soft tissues at the nailbed, suggestive of injury/laceration. No evidence of soft tissue air or radiopaque foreign body.
Care Review
Plan reviewed with: Physician (Dr. Mckeon)
[2024-10-12 16:00] VITALS: BP 111/69
[2024-10-12] MEDS: CRESTOR 20 MG PO (17:52)
[2024-10-12 23:16] VITALS: BP 130/85
[2024-10-13] MEDS: UNASYN IV ×2 (05:34→13:46)
[2024-10-13 07:32] VITALS: BP 124/73
--- NOTE | 2024-10-13 07:41 | W.PN.UPDATE ---
Update Note
Progress Note Update
Patient has left fourth finger paronychia with abscess/cellulitis with status post bedside I&D by Dr. Knapp. He reports he has continued to notice improvement in his symptoms. He is eager to be discharged home. He has continued with warm soaks TID.
He is currently on unasyn with plan to transition to oral abx today. He has been afebrile, and his white count was normal yesterday. Labs pending this AM. There remains ecchymosis and mild erythema about the distal aspect of the finger. There is a
small amount of drainage about the I&D site. Distal neurovascular was intact. I recommend that he continue with warm soaks and abx per ID recommendations. So long as medicine/ID are in agreement, hopeful transition to oral anx today, and dc home.
We would like to see him back for outpatient follow up next week.
--- NOTE | 2024-10-13 09:12 | CM ---
Addendum entered by Yamilex Jeffers RN 10/13/24 13:23:
IMM reviewed with the patient.
Addendum entered by Yamilex Jeffers RN 10/13/24 13:15:
p reviewed. Patient's spouse to provide transportation home.
Original Note:
Reviewed the chart notes. Patient to be transitioned to po abx at discharge. CM continues to be available to patient/family and is monitoring medical plan for needs at discharge.
Plan: Discharge to home with no needs identified at this time.
[2024-10-13] MEDS: EFFIENT 10 MG PO (09:21)
[2024-10-13] MEDS: TYLENOL 650 MG PO (09:23)
[2024-10-13] MEDS: NICODERM TRANSDERMAL 21 MG TRANSDERM (09:24)
[2024-10-13] MEDS: LASIX 40 MG PO (09:24)
[2024-10-13] MEDS: TOPROL XL 25 MG PO (09:24)
[2024-10-13] MEDS: LOW STRENGTH ASPIRIN 81 MG PO (09:24)
--- NOTE | 2024-10-13 09:53 | W.PN.ID1 ---
Date of Service
Date of Service: October 13, 2024
Today's Communication
- transition Unasyn to Augmentin 875mg po bid x 10 more days.
Assessment / Plan
# Severe left 4th finger paronychia with abscess and cellulitis, improving
- Abscess lanced in ED. Gram stain polymicrobial org. Cx mix skin brown.
- transition Unasyn to Augmentin 875mg po bid x 10 more days.
# Right arm phlebitis from pIV.
- Apply warm compress.
# Tobacco abuse
- Discussed importance of smoking cessation
Chief Complaint
-: Cellulitis
Subjective / Review of Systems
Doing well.
Vital Signs / Physical Exam
Vital Signs
Vital Signs
Temp Pulse Resp BP Pulse Ox
97.8 F 77 18 124/73 95
10/13/24 07:32 10/13/24 07:32 10/13/24 07:32 10/13/24 07:32 10/13/24 07:32
Physical Exam
Constitutional: No Acute Distress and Comfortable
Cardiovascular: Regular Rate and S1/S2
Pulmonary: Clear
Gastrointestinal: Soft, Non Tender and Non Distended
Extremities: Other ( Right antecubital area of induration and erythema improved. )
Wound: Other (Left 4th finger erythema resolving and localized to per-ungal; wound around nail drying up. )
Neurological: AO x 3
Objective Data
Lab Data
Lab Results
10/11/24 06:51
10/11/24 06:51
ESR 22 mm/hour (0-20) H 10/10/24 14:12
Estimated Creat Clear > 125 ml/min 10/11/24 06:51
Total Bilirubin 0.5 mg/dl (0.2-1.3) 10/10/24 14:11
AST 16 U/L (17-59) L 10/10/24 14:11
ALT 18 U/L (0-50) 10/10/24 14:11
Alkaline Phosphatase 64 U/L (38-126) 10/10/24 14:11
C-Reactive Protein 30.10 mg/L (0.0-10.00) H 10/10/24 14:11
Most recent labs reviewed.
Micro Results:
10/10/24 14:24 Wound Culture - Final
Abscess Gram Stain - Final
10/10/24 20:36 MRSA Screen - Final
Nose No Methicillin Resistant Staphylococcus aureus isolated.
10/10/24 Finger XRAY: Irregularity involving the dorsal soft tissues at the nailbed, suggestive of injury/laceration. No evidence of soft tissue air or radiopaque foreign body.
[2024-10-13 11:44] VITALS: BP 107/56
--- NOTE | 2024-10-13 14:06 | W.DCSUMMARY ---
Discharge Summary
Discharge Data
Date of Admission: 10/10/24
Date of Discharge: 10/13/24
-
Pending Results: No
Hospital Course
54 years old male presented with severe left fourth finger swelling and inflammation. Patient was diagnosed with acute paronychia with abscess and cellulitis. Imaging study did not show foreign body. Patient reported he had nailbiting habit.
Patient was evaluated by orthopedic doctor and infectious disease doctor. He had incision and drainage of the abscess. Culture came back positive for multiple microbes. He was started on intravenous antibiotic with good improvement. Orthopedic
doctor recommended outpatient follow-up. Patient remained hemodynamic stable. Did not have fever or leukocytosis. Did not require pain medication. He was able to move his fingers. Good peripheral pulse. Patient was advised to continue wound
care and take antibiotic. He was set up to follow-up with orthopedic few days after discharge for follow-up. He was given an off work note to avoid contamination of the wound. Patient was discharged home in a stable condition. He was given a
prescription for nicotine patch also.
Discharge Plan
-
Patient Disposition: Home (Routine Discharge)
Discharge Diagnosis/Procedures: Severe left 4th finger paronychia with abscess and cellulitis, improving now
You were seen by orthopedic soctor and ID doctor.
Diet: As tolerated
Referrals:
NONE,* [Family Provider] -
Andres Knapp MD [Active] - in less than 1 week
Prescriptions:
New
nicotine 21 mg/24 hr Patch 24 Hour
21 mg transdermal DAILY Qty: 28 0RF
amoxicillin-pot clavulanate 875-125 mg tablet
1 tab PO BID Qty: 20 0RF
Continued
rosuvastatin 20 mg Tablet
20 mg PO QPM Qty: 90 3RF
prasugrel HCl 10 mg Tablet
10 mg PO DAILY Qty: 90 3RF
aspirin 81 mg Tablet,Chewable
81 mg PO DAILY Qty: 0 0RF
metoprolol succinate 25 mg Tablet Extended Release 24 Hr
25 mg PO DAILY Qty: 90 3RF
furosemide [Lasix] 40 mg tablet
40 mg PO DAILY Qty: 90 5RF
Discharge Orders:
Discharge Patient (As Directed); Ordered 10/13/24
Ordered By: Rm Mckeon
Discharge Date and Time
Print Language: WELSH
--- NOTE | 2024-10-13 14:13 | W.PN.HOSP.TC ---
Today's Communication/Plan
-
dc
Assessment / Plan
Assessment / Plan
Physical Exam
General: Comfortable and Conversant
HEENT: Anicteric and Moist mucous membranes
Respiratory: Clear and Non Labored Respirations
Cardiac: S1/S2 and Regular Rhythm
GI: Soft and Non Tender
Rectal: Deferred by Provider
Musculoskeletal: No Clubbing and No Cyanosis
Skin: Other (Left 4th Finger: looks much better, less swelling, no drainage, no pain upon moving, able to flex finger.
Neuro: Awake, Alert, Oriented and Nonfocal/grossly intact
Psych: Calm
# Left ring finger paronychia
Pain is not significant doing wound care . WBC normal now, no fevers.
I spoke with Dr Knapp, saw wound today, ok to go home, f/w in office in a week, pt verbalized understanding, also give off work note for 10 days.
Left Finger Cellulitis with Left Arm Lymphangitis secondary to Left 4th Finger Paronychia s/p I&D in ED and bed side by Dr Knapp
Finger x-ray with no evidence of soft tissue air or radiopaque foreign bod, c/w soft tissue swelling.
- culture multiple microbes.
-Status post Ancef and vancomycin, currently on Unasyn. dc on Augmentin
Appreciate ortho & ID Help
#Coronary Artery Disease s/p Multiple Stents (most recent Jul 2024)
STEMI with VF/VT Arrest in Jun 2024
No chest pain or sob
-Continue aspirin and Effient
Chronic HFpEF
-Continue Lasix
Essential Hypertension
-Continue Metoprolol
Hyperlipidemia
-Continue Crestor
Tobacco Use Disorder
Order nicotine patch
-Encourage smoking cessation
DVT proph: SCDs
Code Status: Full Code
Total discharge time spent to see the patient, examine the patient, review data and lab results, discuss discharge /treatment plan with patient, nursing staff around 67 minutes.
Anticipated Discharge: Today
Subjective/Interval History
-
Date of Service: October 13, 2024
Doing well
No pain in finger
Wants to go home
Objective Data
-
Vital Signs:
Vital Signs
Temp Pulse Resp BP Pulse Ox
97.6 F 72 18 107/56 96
10/13/24 11:44 10/13/24 11:44 10/13/24 11:44 10/13/24 11:44 10/13/24 11:44
I&O
10/12/24 10/13/24 10/14/24
06:59 06:59 06:59
Intake Total 940 / 940 2280 / 2280 300 / 300
Balance 940 / 940 2280 / 2280 300 / 300
== END 2024-10-13 14:43 | disposition home or self-care (01) | DRG 580 ==
LOC: 1 ACUTE 16:28
PROVIDERS: Physician Assistant; Physician Assistant Medical; ADMITTING PHYSICIAN Internal Medicine; ATTENDING PHYSICIAN Internal Medicine; CONSULT PHYSICIAN Orthopaedic Surgery; EMERGENCY PHYSICIAN Emergency Medicine; OTHER PHYSICIAN Internal Medicine Infectious Disease
PROC: 0P9 Upper Bones, Drainage (ICD-10-PCS; 2024-10-10)
DX: L02.512 Cutaneous abscess of left hand (principal); I50.32 Chronic diastolic (congestive) heart failure; L03.012 Cellulitis of left finger; F17.210 Nicotine dependence, cigarettes, uncomplicated; I25.10 Atherosclerotic heart disease of native coronary artery without angina pectoris; Z95.5 Presence of coronary angioplasty implant and graft; Z82.49 Family history of ischemic heart disease and other diseases of the circulatory system; E78.00 Pure hypercholesterolemia, unspecified
CPT/HCPCS: 10060; 73140; 80048; 80053; 85025; 85027; 85652; 86140; 87070; 87205; 96374; 96375; 99285